=== PATIENT | female | born 1935 | race Caucasian/White ===

== ENCOUNTER 2016-09-09 13:12 | Emergency (ER) | payer OTHER ==
[~2016-09-09] VITALS: Ht 154.9 cm; Wt 59.7 kg
[~2016-09-09 13:12] MED LIST: ACET-1138 PO; ASPEC81 PO; ATV5 PO; DOCU-94 PO; GLCSC750600 PO; MISCCAP PO; MULT-916 PO; ONDA8TAB6 PO; PRLSR20 PO; RXC5 PO
[2016-09-09 13:20] VITALS: TEMP 36.8; Ht 154.9 cm; Wt 59.7 kg
[2016-09-09] MEDS ORDERED: HYDROmorphone INJ 1 MG/ML SYR IV STA (13:51)
[2016-09-09] MEDS ORDERED: ONDANSETRON INJ 2 MG/ML 2 ML VIAL IV STA (13:51)
[2016-09-09] MEDS ORDERED: SOD PHOSPHATE/SOD BIPHOSPHATE ENEMA 132 ML BTL PR STA (13:51)
[2016-09-09] MEDS ORDERED: KETOROLAC TROMETHAMINE 30 MG/ML VIAL IV STA (13:51)
[2016-09-09] MEDS ORDERED: SODIUM CHLORIDE 0.9% 1000ML 1,000 ML IV STA (13:51)
--- NOTE | 2016-09-09 13:52 | EMERGENCY ROOM VISIT NOTE ---
History Report prepared by Estrellita: Jonnathan Lang Under the Supervision of: Dr. Cherelle Bourgeois M.D. First contact with patient: 13:42 Chief Complaint: CONSTIPATION Stated Complaint: UNABLE TO HAVE A BOWEL MOVEMENT-KNEE SURGERY 08/17 Nursing Triage Summary: Pt c/o constipation, states had knee replacement in August, has been taking pain medication and now with constipation. Pt states the same thing occurred when she had back surgery. History of Present Illness The patient is a 81 year old female who presents to the Emergency Room with complaints of persistent constipation that started a few days ago. She had knee surgery on August 17 and has been taking pain medication for that. The patient associates the constipation with abdominal pain and dry heaves. She describes the abdominal pain as a cramping pain. She notes that she had similar symptoms after she had back surgery and was put on pain medication. Source of History: patient Onset: A few days ago Position: other (global - constipation) Timing: other (persistent) Associated Symptoms: + abdominal pain Note: Associated symptoms: Dry heaves. Review of Systems See HPI for pertinent positives & negatives. A total of 10 systems reviewed and were otherwise negative. Past Medical & Surgical Medical Problems: (1) Left knee DJD Family History FH: cancer FH: heart disease Hypertension Social History Smoking Status: Never Smoker Drug Use: none Housing Status: lives with family Occupation Status: employed Current/Historical Medications Scheduled Acetaminophen (Tylenol Extra Strength), 1,000 MG PO Q8 Aspirin (Aspirin EC Low Dose), 81 MG PO BID Docusate Sodium (Colace), 2 CAP PO HS Glucosamine-Chondroitin (Glucosamine/Chondroitin), 1 CAP PO TID Lorazepam (Ativan *), 0.5 MG PO PRN Multiple Vitamins W/ Minerals (Multivitamin Adults 50+), 0.5 PKT PO BID Omeprazole (Prilosec), 20 MG PO QAM Scheduled PRN Ondansetron Hcl (Zofran), 8 MG PO Q8H PRN for Nausea Allergies Coded Allergies: Iodinated Diagnostic Agents (Unverified Allergy, Severe, DIFFICULTY BREATHING, 08/17/16) Penicillins (Verified Allergy, Intermediate, HIVES, 08/17/16) Sulfa Antibiotics (Verified Allergy, Intermediate, "SULFA DRUGS" = HIVES, 08/17/16) Adhesives (Verified Allergy, Unknown, tape = red skin, 08/17/16) Atorvastatin (Verified Allergy, Unknown, SEVERE MUSCLE PAIN, 08/17/16) Ciprofloxacin (Verified Allergy, Unknown, HIVES, 08/17/16) Simvastatin (Verified Allergy, Unknown, SEVERE MUSCLE ACHES, 08/17/16) Morphine (Verified Adverse Reaction, Unknown, SEVERE DELERIUM, 08/17/16) Physical Exam Vital Signs Date Time Temp Pulse Resp B/P Pulse Ox O2 Delivery O2 Flow Rate FiO2 09/09/16 16:37 96 20 147/82 91 Room Air 09/09/16 15:15 97 20 146/87 98 Room Air 09/09/16 13:20 36.8 99 18 155/88 97 Room Air Physical Exam CONSTITUTIONAL: Mild to moderate distress. HEENT: No icterus, moist mucous membranes NECK: No meningismus, trachea is midline. CARDIOVASCULAR: Regular rate, normal perfusion RESPIRATORY: Unlabored breathing. Clear to auscultation. GASTROINTESTINAL: Diffuse lower abdominal tenderness. GENITOURINARY: No flank tenderness MUSCULOSKELETAL: Full range of motion RECTAL: No impaction. NEUROLOGIC: No acute gross focal deficits. PSYCHIATRIC: Normal affect SKIN: Normal for ethnicity. Medical Decision & Procedures ER Provider Diagnostic Interpretation: CT results as stated below per my review and radiologist interpretation. CT SCAN OF THE ABDOMEN AND PELVIS WITHOUT CONTRAST CLINICAL HISTORY: constipation, nausea COMPARISON STUDY: 05/11/2012 TECHNIQUE: CT scan of the abdomen and pelvis was performed from the lung bases to the proximal femurs. Images are reviewed in the axial, sagittal, and coronal planes. IV contrast was not administered for this examination. CT DOSE: 257.12 mGy.cm FINDINGS: Lower chest: There is a hiatal hernia. There is minor basilar atelectasis. There are coronary artery calcifications. Liver: The unenhanced liver is normal in size, contour, and attenuation. There is no intrahepatic biliary ductal dilatation. Gallbladder: There are calcifications in the gallbladder fundus. This could represent either wall calcifications, or an adherent gallstones. Spleen: Normal in size and attenuation. Pancreas: Unremarkable. Adrenal glands: Unremarkable. Kidneys: The unenhanced kidneys are normal in size without hydronephrosis. There is no contour deforming renal mass lesion. No renal calculi are identified. Bowel: There are no transition zones indicate bowel obstruction. There is no evidence of acute diverticulitis. There is no evidence of acute appendicitis. There is mild fecal retention. Peritoneum: There is no intraperitoneal free air or abdominal ascites. Vasculature: The abdominal aorta is normal in course and caliber. Adenopathy: None. Pelvic viscera: The uterus is surgically absent. There are stable linear curvilinear calcifications within the pelvis, of uncertain etiology. Skeletal structures: There are postsurgical changes of an extensive lumbar laminectomy and fusion with posterior spinal rods and multilevel pedicle screws. There is a T11-12 erosive endplate irregularity likely discogenic basis. IMPRESSION: 1. Moderate hiatal hernia 2. No renal, ureteral, or bladder calculi identified 3. No evidence of bowel obstruction. No evidence of free air 4. No evidence of acute appendicitis. No evidence of acute diverticulitis 5. Gallbladder wall calcification versus adherent calcified gallstone Electronically signed by: Liam Allen M.D. 09/09/2016 4:43 PM Dictated Date/Time: 09/09/2016 4:36 PM Laboratory Results 09/09/16 14:18 Red Blood Count 4.01, Mean Corpuscular Volume 92.8, Mean Corpuscular Hemoglobin 30.7, Mean Corpuscular Hemoglobin Concent 33.1, Mean Platelet Volume 9.1, Neutrophils (%) (Auto) 61.1, Lymphocytes (%) (Auto) 28.5, Monocytes (%) (Auto) 9.2, Eosinophils (%) (Auto) 0.6, Basophils (%) (Auto) 0.4, Neutrophils # (Auto) 3.19, Lymphocytes # (Auto) 1.49, Monocytes # (Auto) 0.48, Eosinophils # (Auto) 0.03, Basophils # (Auto) 0.02 09/09/16 14:18 Test 09/09/16 14:18 09/09/16 15:15 White Blood Count 5.22 K/uL (4.8-10.8) Red Blood Count 4.01 M/uL (4.2-5.4) Hemoglobin 12.3 g/dL (12.0-16.0) Hematocrit 37.2 % (37-47) Mean Corpuscular Volume 92.8 fL (80-100) Mean Corpuscular Hemoglobin 30.7 pg (25-34) Mean Corpuscular Hemoglobin Concent 33.1 g/dl (32-36) Platelet Count 528 K/uL (130-400) Mean Platelet Volume 9.1 fL (7.4-10.4) Neutrophils (%) (Auto) 61.1 % Lymphocytes (%) (Auto) 28.5 % Monocytes (%) (Auto) 9.2 % Eosinophils (%) (Auto) 0.6 % Basophils (%) (Auto) 0.4 % Neutrophils # (Auto) 3.19 K/uL (1.4-6.5) Lymphocytes # (Auto) 1.49 K/uL (1.2-3.4) Monocytes # (Auto) 0.48 K/uL (0.11-0.59) Eosinophils # (Auto) 0.03 K/uL (0-0.5) Basophils # (Auto) 0.02 K/uL (0-0.2) RDW Standard Deviation 49.9 fL (36.4-46.3) RDW Coefficient of Variation 14.8 % (11.5-14.5) Immature Granulocyte % (Auto) 0.2 % Immature Granulocyte # (Auto) 0.01 K/uL (0.00-0.02) Anion Gap 8.0 mmol/L (3-11) Est Creatinine Clear Calc Drug Dose 50.4 ml/min Estimated GFR () 87.9 Estimated GFR (Non- 75.8 BUN/Creatinine Ratio 17.4 (10-20) Calcium Level 9.1 mg/dl (8.5-10.1) Total Bilirubin 0.4 mg/dl (0.2-1) Aspartate Amino Transf (AST/SGOT) 21 U/L (15-37) Alanine Aminotransferase (ALT/SGPT) 30 U/L (12-78) Alkaline Phosphatase 95 U/L (45-117) Total Protein 7.4 gm/dl (6.4-8.2) Albumin 3.8 gm/dl (3.4-5.0) Globulin 3.6 gm/dl (2.5-4.0) Albumin/Globulin Ratio 1.1 (0.9-2) Urine Color YELLOW Urine Appearance CLEAR (CLEAR) Urine pH 7.5 (4.5-7.5) Urine Specific [place] 1.009 (1.000-1.030) Urine Protein NEG (NEG) Urine Glucose (UA) NEG (NEG) Urine Ketones NEG (NEG) Urine Occult Blood NEG (NEG) Urine Nitrite NEG (NEG) Urine Bilirubin NEG (NEG) Urine Urobilinogen NEG (NEG) Urine Leukocyte Esterase NEG (NEG) Labs reviewed by ED physician. Medications Administered Medications (Trade) Dose Ordered Sig/Quinton Route Start Time Stop Time Status Last Admin Dose Admin Sodium Chloride (Nss 1000ml) 1,000 ml @ 0 mls/hr Q0M STAT IV 09/09/16 13:51 09/09/16 13:54 DC 09/09/16 14:28 999 MLS/HR Ondansetron HCl (Zofran Inj) 4 mg NOW STAT IV 09/09/16 13:51 09/09/16 13:54 DC 09/09/16 14:27 4 MG Ketorolac Tromethamine (Toradol Inj) 15 mg NOW STAT IV 09/09/16 13:51 09/09/16 13:54 DC 09/09/16 14:28 15 MG Hydromorphone HCl (Dilaudid Inj) 1 mg PRN STAT IV 09/09/16 13:51 09/09/16 13:54 DC 09/09/16 14:30 1 MG Sodium Biphosphate/ Sodium Phosphate (Fleet Enema) 132 ml NOW STAT MT 09/09/16 13:51 09/09/16 13:54 DC 09/09/16 14:31 132 ML Metoclopramide HCl (Reglan Inj) 10 mg Q6H IV 09/09/16 14:00 10/09/16 13:59 09/09/16 14:28 10 MG Lorazepam (Ativan Inj) 1 mg NOW STAT IV 09/09/16 14:37 09/09/16 14:38 DC 09/09/16 14:43 1 MG ED Course 1344: Past medical records reviewed. The patient was evaluated in room B6. A complete history and physical examination was performed. 1351: Ordered Fleet Enema 132 ml MT, Dilaudid Inj 1 mg IV, Toradol Inj 15 mg IV , Zofran Inj 4 mg IV, NSS 1000 ml @ 0 mls/hr Wide Open IV. 1400: Ordered Reglan Inj 10 mg IV. 1437: Ordered Ativan Inj 1 mg IV. 1705: I reevaluated the patient and she is resting comfortably. The patient verbally expressed understanding and agreement of the treatment plan. The patient will be discharged. Medical Decision Differential diagnoses include: obstruction, constipation, infection. 81-year-old presented to the emergency room for worsening constipation status post knee replacement and is now nauseous without vomiting and mild diffuse lower abdominal pain on exam. Rectal exam without impaction. She was hydrated given antiemetics and CT scan was up swelling negative for obstruction or other acute pathology. Fleet enema provided emergency room. She was counseled regarding management of constipation including Fleet enemas, laxatives and given prescription for HalfLytely and Zofran or ballotable tablets when necessary. She. No distress was benign abdomen prior to discharge at 5 PM. Impression Primary Impression: Constipation Scribe Attestation The scribe's documentation has been prepared under my direction and personally reviewed by me in its entirety. I confirm that the note above accurately reflects all work, treatment, procedures, and medical decision making performed by me. Departure Information Dispostion Home / Self-Care Referrals Osei Agudelo M.D. (PCP) Forms HOME CARE DOCUMENTATION FORM, IMPORTANT VISIT INFORMATION Patient Instructions A Signature Page, Constipation, My [facility] Additional Instructions Rx: Half Lypita
[2016-09-09] MEDS ORDERED: METOCLOPRAMIDE HCL INJ 5 MG/ML 2 ML VIAL IV SCH (14:00)
[2016-09-09] MEDS ORDERED: LORAZEPAM 2 MG/ML 1 ML VIAL IV STA (14:37)
[2016-09-09 14:50] LABS: BASO % 0.4 %; BASO ABS # 0.02 K/uL (0-0.2); COMPLETE YES; EOS % 0.6 %; HEMATOCRIT 37.2 % (37-47); IG% 0.2 %; LYMPH % 28.5 %; LYMPH ABS # 1.49 K/uL (1.2-3.4); MEAN CELL VOLUME 92.8 fL (80-100); MEAN CORPUSCULAR HEMOGLOBIN 30.7 pg (25-34); MEAN CORPUSCULAR HGB CONC 33.1 g/dl (32-36); MEAN PLATELET VOLUME 9.1 fL (7.4-10.4); MONO % 9.2 %; NEUT % 61.1 %; PLATELET COUNT 528 K/uL (130-400); RED BLOOD COUNT 4.01 M/uL (4.2-5.4); WHITE BLOOD COUNT 5.22 K/uL (4.8-10.8)
[2016-09-09 15:09] LABS: BUN/CREATININE RATIO 17.4 (10-20); CALCIUM 9.1 mg/dl (8.5-10.1); CREATININE 0.75 mg/dl (0.60-1.20)
[2016-09-09 15:12] LABS: ALB/GLOB RATIO 1.1 (0.9-2)
[2016-09-09 16:22] LABS: URINE APPEARANCE CLEAR (CLEAR); URINE BILIRUBIN NEG (NEG); URINE COLOR YELLOW; URINE NITRITE NEG (NEG); URINE PH 7.5 (4.5-7.5); URINE SPECIFIC GRAVITY 1.009 (1.000-1.030); UROBILINOGEN NEG (NEG); ZZUR CULT IF INDIC CLEAN CATCH NO
[2016-09-09 16:26] LABS: MANUAL MICROSCOPIC REQUIRED? NO; REVIEW REQ? NO
--- NOTE | 2016-09-09 16:45 | DIAGNOSTIC IMAGING REPORT ---
CT SCAN OF THE ABDOMEN AND PELVIS WITHOUT CONTRAST CLINICAL HISTORY: constipation, nausea COMPARISON STUDY: 05/11/2012 TECHNIQUE: CT scan of the abdomen and pelvis was performed from the lung bases to the proximal femurs. Images are reviewed in the axial, sagittal, and coronal planes. IV contrast was not administered for this examination. CT DOSE: 257.12 mGy.cm FINDINGS: Lower chest: There is a hiatal hernia. There is minor basilar atelectasis. There are coronary artery calcifications. Liver: The unenhanced liver is normal in size, contour, and attenuation. There is no intrahepatic biliary ductal dilatation. Gallbladder: There are calcifications in the gallbladder fundus. This could represent either wall calcifications, or an adherent gallstones. Spleen: Normal in size and attenuation. Pancreas: Unremarkable. Adrenal glands: Unremarkable. Kidneys: The unenhanced kidneys are normal in size without hydronephrosis. There is no contour deforming renal mass lesion. No renal calculi are identified. Bowel: There are no transition zones indicate bowel obstruction. There is no evidence of acute diverticulitis. There is no evidence of acute appendicitis. There is mild fecal retention. Peritoneum: There is no intraperitoneal free air or abdominal ascites. Vasculature: The abdominal aorta is normal in course and caliber. Adenopathy: None. Pelvic viscera: The uterus is surgically absent. There are stable linear curvilinear calcifications within the pelvis, of uncertain etiology. Skeletal structures: There are postsurgical changes of an extensive lumbar laminectomy and fusion with posterior spinal rods and multilevel pedicle screws. There is a T11-12 erosive endplate irregularity likely discogenic basis. IMPRESSION: 1. Moderate hiatal hernia 2. No renal, ureteral, or bladder calculi identified 3. No evidence of bowel obstruction. No evidence of free air 4. No evidence of acute appendicitis. No evidence of acute diverticulitis 5. Gallbladder wall calcification versus adherent calcified gallstone Electronically signed by: Liam Allen M.D. 09/09/2016 4:43 PM Dictated Date/Time: 09/09/2016 4:36 PM
[2016-09-09 17:36] VITALS: BP 133/76; PULSE 81; O2SAT 96
[2017-05-04] MEDS ORDERED: FIBER TAB PO (14:06)
[2017-05-04] MEDS ORDERED: ACET-1256 PO (14:06)
[2017-05-04] MEDS ORDERED: MISCCAP PO (14:07)
== END 2016-09-09 17:38 | disposition home or self-care (01) ==
LOC: C.EDB 13:14
DX: K59.00 Constipation, unspecified (principal); R10.9 Unspecified abdominal pain; Z96.652 Presence of left artificial knee joint; Z79.899 Other long term (current) drug therapy

== ENCOUNTER → 2016-10-24 | Outpatient (CLI) | payer OTHER ==
[~2016-10-24] MED LIST changes: +ACET-1256 PO; +FIBER TAB PO; -RXC5 PO
--- NOTE | 2016-10-24 15:13 | MAMMOGRAPHY REPORT ---
BILATERAL DIGITAL SCREENING MAMMOGRAM WITH CAD: 10/24/2016 CLINICAL HISTORY: Routine screening examination. TECHNIQUE: Bilateral CC, MLO and XCCL views were obtained. Current study was also evaluated with a Computer Aided Detection (CAD) system. COMPARISON: Comparison is made to exams dated: 10/14/2015 mammogram, 10/07/2013 mammogram, 10/02/2012 m ammogram - [facility], 09/07/2007, 10/31/2008, and 11/11/2009 mammogram - [facility]. BREAST COMPOSITION: There are scattered areas of fibroglandular density in both breasts. FINDINGS: There are moderate vascular calcifications bilaterally. No suspicious mass, architectura l distortion or cluster of suspicious microcalcifications is seen. IMPRESSION: ACR BI-RADS CATEGORY 1: NEGATIVE There is no mammographic evidence of malignancy. A 1 year screening mammogram is recommended. The p atient will receive written notification of the results. Approximately 10% of breast cancers are not detected with mammography. A negative mammographic repor t should not delay biopsy if a clinically suggestive mass is present. Tara Shaver M.D. ay/:10/24/2016 09:12:19 District Gauger: Kayli GOMEZ(Earl)(Francisca)([place]), [facility] letter sent: Normal 1/2 BI-RADS Code: ACR BI-RADS Category 1: Negative
== END | disposition home or self-care (01) ==
LOC: C.MAMM 08:51
PROVIDERS: ATTEND Internal Medicine
DX: Z12.31 Encounter for screening mammogram for malignant neoplasm of breast (principal)

== ENCOUNTER 2017-06-21 08:21 | Inpatient (IN) | payer OTHER ==
[2017-05-04 14:13] VITALS: BMI 25.0
[2017-05-26 11:05] LABS: BASO % 0.2 %; BASO ABS # 0.01 K/uL (0-0.2); COMPLETE YES; EOS % 0.2 %; HEMATOCRIT 44.1 % (37-47); IG% 0.4 %; LYMPH % 24.8 %; LYMPH ABS # 1.24 K/uL (1.2-3.4); MEAN CELL VOLUME 94.2 fL (80-100); MEAN CORPUSCULAR HEMOGLOBIN 31.8 pg (25-34); MEAN CORPUSCULAR HGB CONC 33.8 g/dl (32-36); MEAN PLATELET VOLUME 9.5 fL (7.4-10.4); MONO % 9.4 %; PLATELET COUNT 253 K/uL (130-400); RED BLOOD COUNT 4.68 M/uL (4.2-5.4); WHITE BLOOD COUNT 4.99 K/uL (4.8-10.8)
--- NOTE | 2017-05-26 11:08 | DIAGNOSTIC IMAGING REPORT ---
CHEST 2 VIEWS ROUTINE CLINICAL HISTORY: Preoperative chest COMPARISON STUDY: 10/23/2015 FINDINGS: The cardiac and mediastinal contours remain stable. There is a retrocardiac opacity containing air-fluid level consistent with a hiatal hernia. There are postsurgical changes of thoracic and lumbar spinal rodding. There are postsurgical changes of discectomies and interbody fusions within the lumbar spine. There are several thoracic vertebral body compression deformities. There is no focal pulmonary consolidation. There is no failure. There are no pleural effusions. Postsurgical changes are also evident with the right shoulder.[ IMPRESSION: No active disease in the chest. Electronically signed by: Liam Allen M.D. 05/26/2017 11:07 AM Dictated Date/Time: 05/26/2017 11:06 AM
[2017-05-26 11:13] LABS: INR 0.9 (0.9-1.1); PROTHROMBIN TIME (PATIENT) 9.7 SECONDS (9.0-12.0)
[2017-05-26 11:32] LABS: BUN/CREATININE RATIO 21.8 (10-20); CALCIUM 9.3 mg/dl (8.5-10.1); CREATININE 0.81 mg/dl (0.60-1.20); POTASSIUM 4.1 mmol/L (3.5-5.1)
[2017-05-26 11:57] LABS: ESTIMATED AVERAGE GLUCOSE 114 mg/dl; HA1C FLAG Normal (Normal)
[2017-05-26 13:24] LABS: URINE APPEARANCE CLEAR (CLEAR); URINE BILIRUBIN NEG (NEG); URINE COLOR YELLOW; URINE EPITHELIAL CELL AUTO >30 /lpf (0-5); URINE NITRITE NEG (NEG); URINE PH 6.5 (4.5-7.5); UROBILINOGEN NEG (NEG)
[2017-05-26 13:35] LABS: MANUAL MICROSCOPIC REQUIRED? NO; REVIEW REQ? NO
--- NOTE | 2017-06-20 16:35 | HISTORY & PHYSICAL EXAMINATION ---
DATE OF ADMISSION: 06/21/2017 CHIEF COMPLAINT: Chronic right shoulder pain. HISTORY OF PRESENT ILLNESS: This is an 82-year-old female patient of Dr. Sykes'mayco complaining of chronic right shoulder pain, longstanding, now progressively getting worse. The patient failed conservative treatment and elected to proceed with a right reverse total shoulder arthroplasty. PAST MEDICAL HISTORY: Anxiety, rheumatoid arthritis, osteoarthritis, spine problems, neck problems, sciatica. SOCIAL HISTORY: Nonsmoker, nondrinker. PAST SURGICAL HISTORY: Knee surgery, shoulder surgery, back surgery. MEDICATIONS: Tylenol as needed and lorazepam as needed. FAMILY HISTORY: Noncontributory. REVIEW OF SYSTEMS: The patient complains of chronic right shoulder pain and weakness. Otherwise, denies any shortness of breath, chest pain, nausea, vomiting or any other joint complaints. PHYSICAL EXAMINATION: GENERAL: Well-developed, well-nourished 82-year-old female in no acute distress. She is alert and oriented x3 and pleasant. HEAD, EYES, EARS, NOSE, AND THROAT: Normocephalic, atraumatic. Extraocular motions are intact. Pupils are equal and reactive to light. HEART: Regular rate and rhythm, no murmurs appreciated. LUNGS: Clear. ABDOMEN: Soft, nontender, bowel sounds are present. EXTREMITIES: Right shoulder reveals 3/5 strength globally. Actively she has range of motion of 95 degrees, passively full. A full range of motion passively is painful with crepitation. Neurologically and neurovascularly she is intact within her right upper extremity. 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 She also has a history of anxiety, rheumatoid arthritis, osteoarthritis, spine problems, neck problems, sciatica, back problems and acid reflux. PLAN: The patient was advised of her diagnosis. Indications, risks, benefits, postop course have all been reviewed. The patient wishes to proceed with a right reversed total shoulder arthroplasty. Necessary consent forms, preoperative testing and clearances will be obtained. SUSAN
[~2017-06-21] VITALS: Ht 152.4 cm; Wt 59.1 kg
[2017-06-21] VITALS (8 sets, daily range): BP systolic 114–181; BP diastolic 62–97; PULSE 77–97; TEMP 34.8–36.6; O2SAT 93–97; Ht 152.4 cm; Wt 59.1 kg
[~2017-06-21 08:21] MED LIST changes: -ACET-1138 PO; +ACETAMINOPHEN 500 MG TAB PO SCH; -ASPEC81 PO; +CeleBREX 200 MG CAP PO SCH; +DEXAMETHASONE 4 MG TAB PO SCH; -DOCU-94 PO; +FAMOTIDINE 20 MG TAB PO SCH; +GABAPENTIN 300 MG CAP PO SCH; -GLCSC750600 PO; +LACTATED RINGER'S 1000ML 1,000 ML IV SCH; +LACTATED RINGER'S 1000ML IV SCH; +METOCLOPRAMIDE HCL 10 MG TAB PO SCH; -ONDA8TAB6 PO; -PRLSR20 PO; +VANCOMYCIN INJ 900 MG in SODIUM CHLORIDE 0.9% 250ML 250 ML IV SCH
[2017-06-21] MEDS ORDERED: DEXAMETHASONE SOD INJ 4 MG/ML VIAL ONE (08:29)
[2017-06-21] MEDS ORDERED: EpINEphrine INJ 1MG/ML AMP 1 MG/ML AMP ONE (08:29)
[2017-06-21] MEDS ORDERED: BUPIVACAINE 0.25% 30 ML VIAL ONE (08:29)
[2017-06-21] MEDS ORDERED: FENTANYL CITRATE INJ 50 MCG/1 ML 2 ML VIAL ONE (09:39)
[2017-06-21] MEDS ORDERED: MIDAZOLAM HCL 1 MG/ML 2ML VIAL ONE (09:39)
[2017-06-21] MEDS ORDERED: BACITRACIN 50000 UNIT VIAL ONE (09:57)
[2017-06-21] MEDS ORDERED: EpINEphrine HCL INJ 1 MG/ML 5ML SYRINGE ONE (09:57)
[2017-06-21] MEDS ORDERED: EpHEDrine SULFATE 50MG/5ML SYR ONE ×2 (09:58→11:26)
--- NOTE | 2017-06-21 10:04 | History & Physical Bridge Note ---
H&P Re-Evaluation Bridge Note: I have examined the patient, reviewed the History & Physical and in the interval since the performance of the History & Physical I have noted the following changes of clinical significance: No changes noted
[2017-06-21] MEDS ORDERED: PROPOFOL IV EMULSION 10 MG/ML 20 ML VIAL IV ONE (11:26)
[2017-06-21] MEDS ORDERED: LIDOCAINE HCL 2% 2 ML VIAL (20MG/ML) ONE (11:26)
[2017-06-21] MEDS ORDERED: GLYCOPYRROLATE INJ 0.2 MG/ML VIAL ONE (11:26)
[2017-06-21] MEDS ORDERED: ROCURONIUM BROMIDE 10 MG/ML 5 ML VIAL IV ONE (11:26)
[2017-06-21] MEDS ORDERED: NEOSTIGMINE METHYLSULFATE 5 MG/5 ML SYR ONE (11:26)
[2017-06-21] MEDS ORDERED: ONDANSETRON INJ 2 MG/ML 2 ML VIAL IV PRN (13:15)
[2017-06-21] MEDS ORDERED: PROMETHAZINE HCL INJ 6.25 MG in SODIUM CHLORIDE 0.9% 50ML 50 ML IV PRN (13:15)
[2017-06-21] MEDS ORDERED: ATROPINE SULFATE 0.1 MG/ML 5ML SYR IV PRN (13:15)
[2017-06-21] MEDS ORDERED: FENTANYL CITRATE INJ 50 MCG/1 ML 2 ML VIAL IV PRN (13:15)
[2017-06-21] MEDS ORDERED: EpHEDrine SULFATE INJ 50 MG/ML AMP IV PRN (13:15)
--- NOTE | 2017-06-21 13:29 | [facility] Post Operative Brief Note ---
Immediate Operative Summary Operative Date Jun 21, 2017. Pre-Operative Diagnosis Right shoulder end stage osteoarthritis,chronic rotator cuff tear ,s/p prior rotator cuff repair retained hardware(suture anchors),biceps rupture Post-Operative Diagnosis same Procedure(s) Performed Right Reverse Total Shoulder Arthroplasty; Rotator Cuff Repair; Biceps Tenodesis Surgeon Dr. Walt Sykes Air Technician Surgeon(s) Eliceo Samson PA-C Estimated Blood Loss 50 ml Findings as above grade 4 djd posterior superior bone loss glenoid Specimens a. humeral head Drains 2 hemovac Anesthesia regional and general Complication(s) None Disposition Recovery Room / PACU
[2017-06-21] MEDS ORDERED: METOCLOPRAMIDE HCL INJ 5 MG/ML 2 ML VIAL IV PRN (13:30)
[2017-06-21] MEDS ORDERED: BISACODYL 10 MG SUPP PR PRN (13:30)
[2017-06-21] MEDS ORDERED: SOD PHOSPHATE/SOD BIPHOSPHATE ENEMA 132 ML BTL PR PRN (13:30)
[2017-06-21] MEDS ORDERED: HYDROmorphone INJ 0.5 MG/0.5 ML SYR IV PRN (13:30)
[2017-06-21] MEDS ORDERED: LORAZEPAM 0.5 MG TAB PO PRN (13:30)
[2017-06-21] MEDS ORDERED: ZOLPIDEM TARTRATE 5 MG TAB PO PRN (13:30)
[2017-06-21] MEDS ORDERED: MAGNESIUM HYDROXIDE SUSP 30 ML UDC PO PRN (13:30)
[2017-06-21] MEDS ORDERED: NATURAL PRODUCTS PO SCH (13:30)
--- NOTE | 2017-06-21 14:10 | DIAGNOSTIC IMAGING REPORT ---
R SHOULDER MIN 2 VIEWS ROUTINE HISTORY: 82 years-old Female Post shoulder surgery status post right shoulder arthroplasty. Degenerative joint disease COMPARISON: None available TECHNIQUE: 2 views of the right shoulder FINDINGS: Status post reverse right total shoulder arthroplasty with satisfactory alignment. No post procedural comp location identified. There are overlying skin adelso with surgical drain and expected soft tissue swelling and deep tissue air. Apparent fragment osteophyte or noted adjacent to the acromium. There is apparent cement material seen deep to the glenoid. Fusion hardware of the spine is noted. There is atherosclerosis of the aorta. IMPRESSION: Status post right shoulder reverse total joint arthroplasty without complication identified. Please see operative report for further details. The above report was generated using voice recognition software. It may contain grammatical, syntax or spelling errors. Electronically signed by: Hermelindo Kingsley M.D. 06/21/2017 2:09 PM Dictated Date/Time: 06/21/2017 2:07 PM
--- NOTE | 2017-06-21 14:15 | Anesthesiology Progress Note ---
Anesthesia Post Op Note Date & Time Jun 21, 2017 at 14:15 Vital Signs Pain Intensity: 0 Vital Signs Past 12 Hours Date Time Temp Pulse Resp B/P (MAP) Pulse Ox O2 Delivery O2 Flow Rate FiO2 06/21/17 14:05 36.6 85 19 132/68 95 Nasal Cannula 4 06/21/17 13:55 88 17 132/66 97 Nasal Cannula 4 06/21/17 13:45 84 17 132/86 97 Nasal Cannula 4 06/21/17 13:35 88 19 135/71 96 Nasal Cannula 4 06/21/17 13:28 36.5 94 16 132/64 97 Nasal Cannula 4 06/21/17 08:52 36.6 88 20 181/97 96 Room Air Notes Mental Status: alert / awake / arousable, participated in evaluation Pt Amnestic to Procedure: Yes Nausea / Vomiting: adequately controlled Pain: adequately controlled Airway Patency, RR, SpO2: stable & adequate BP & HR: stable & adequate Hydration State: stable & adequate Anesthetic Complications: no major complications apparent Block working well in pacu
--- NOTE | 2017-06-21 14:40 | OPERATIVE REPORT ---
DATE OF OPERATION: 06/21/2017 INDICATION FOR PROCEDURE: The patient is an 82-year-old female who presents with chronic right shoulder pain. She has history of rotator cuff repair in the past, at some point this rotator cuff repair failed over time. She has rotator cuff arthropathy. She is now [id number] in the glenohumeral joint. PREOPERATIVE DIAGNOSIS: End-stage glenohumeral osteoarthritis, rotator cuff arthropathy, failed rotator cuff repair, retained hardware and biceps rupture. POSTOPERATIVE DIAGNOSIS: Same grade 4 DJD, bone loss posterior superior glenoid. PROCEDURE: Right shoulder reverse total shoulder arthroplasty, rotator cuff repair, biceps tenodesis, removal of hardware, status post prior rotator cuff repair. SURGEON: Dr. Sykes. COMPRESSOR MECHANIC BUS: Eliceo Samson PA-C. ANESTHESIA: Regional block and general. OPERATIVE PROCEDURE: The patient was taken to the operating room, anesthetized regional block and general anesthetic. She was positioned on an operating room table in a beach chair position in approximately a 40 degree beach chair position. A towel was placed in the medial border of her scapula. Her head was placed on a foam headrest. She had protective eyewear placed. She had SCDs placed. Right shoulder exam demonstrates she had good passive range of motion in forward elevation to at least 70 degrees abduction to 120 degrees, and external rotation to 70 degrees. She had joint effusion and txbg-sw-[id number] crepitation. She had an old lateral longitudinal scar over the deltoid where she had mini open rotator cuff repair in the past. Her right shoulder was sterilely prepped and draped with ChloraPrep. An anterior deltopectoral approach was performed. Skin was incised sharply. Subcutaneous flaps were elevated. The cephalic vein was dissected out and retracted laterally with the deltoid. The pectoralis was retracted medially. The upper centimeter of the pectoralis was released for inferior exposure. We did identify the biceps tendon was still present. It looked a bit atrophic and retracted. We were able to pull the biceps tendon up more proximal to get more tension on the biceps tendon and we tied this down to the pectoralis tendon with a tmqzff-[id number] #2 Fiberwire sutures and resected the residual proximal biceps proximally. There was a thickened bursa over the subscapularis extending over the rotator cuff from the subacromial space. This was resected. The strap muscles and conjoined tendon were retracted medially. Deltoid was retracted laterally. The subscapularis and some of the rotator interval tissue of the rotator cuff was intact. The infraspinatus was torn and retracted, tendinopathic but it looked like she had some repairable infraspinatus tendon tissue. The teres minor was intact. The humeral head was grade 4 DJD in the bone. The circumflex vessels were identified, tied off with silk ties, divided laterally. The axillary nerve was identified visually and by a tug test. This was protected throughout the case. The subscapularis fibers were split at the level of the circumflex vessels and reflected off the inferior capsule, protecting the axillary nerve with a blunt Hohmann retractor. The rotator interval tissue was opened up and extended lateral to the bicipital groove and then the subscapularis and capsule were taken down off the lesser tuberosity subperiosteally down onto the neck of the humerus and the humerus was gradually externally rotated as we released the capsule on the neck of the humerus to expose the inferior humeral osteophytes extended from anterior to posterior. Osteophytes were removed with an artist chisel and a rongeur. We did assure that the capsule was released off the inferior neck of the humerus with the Quiroz elevator. At this time, then the humerus was retracted posterior glenoid with a Fukuda retractor. We did place traction suture into the subscapularis tendon with #1 Vicryl. The capsule was then released under direct visualization down to the glenoid, released off the anterior glenoid and the rotator interval tissue was released down to meet that for a 360 degree release of the subscapularis. The Bankart retractor placed anteriorly. The remnants of the glenoid labrum were resected. We did anterior inferior, posterior inferior capsular release, electrocautery on bone and Quiroz elevator. Glenoid had eburnated bone, some posterior superior bone loss with a biconcave type glenoid. It was more superior posterior bone loss and inferiorly the glenoid was normal posteriorly. At this time the humeral head preparation was performed. The humerus was exposed with extension and external rotation. The cutting guide for the Ascend Flex reversed total shoulder replacement system was used. The cutting guide was adjusted to appropriate position in 20 degrees of retroversion. Then we made the humeral head cut. At this time, we were able to identify the infraspinatus tendon which was a fairly large piece infraspinatus that I could bring over and tied down to the teres minor. We did bring this tendon tissue over and some of it was delaminated so we also passed sutures to the inner delaminated portion and passed it through the outer infraspinatus and into the teres minor too. We sutured these to each other with shlmlz-us-iokmf #2 FiberWire and the #2 FiberWire through the delaminated portion. This gave her more external rotators to hopefully increase strength with external rotation. The humeral preparation was continued starting with a starter awl followed by broaches. She was sized for a 4 and we broached up to a 4 and then placed on the cup protector. Then we retracted the humeral head posterior to the glenoid. We went ahead with a 25 mm baseplate,this was positioned inferior on the glenoid so that we would not get any notching inferiorly. The central drill hole was made with the guide for the baseplate followed by the reamer and we did do 10 degree inferior tilt so we did get some inferior reaming more than superior to get the appropriate angle for the implant. After irrigation, the 25 base plate was placed in position after the central hole was widened for the post. The baseplate was then transfixed with anterior and posterior compression screws of 18 and 32 mm and superior and inferior locking screws of 23 and 29 mm. There was excellent fixation with the screws. We used the fan reamer and then placed on the standard glenosphere 36/25 diameter. After this was impacted in position the central screw was tightened. We reassessed stability of the glenosphere and then irrigated out the joint. Then we went ahead and placed the +0 mm high offset humeral tray in position and rotated the offset to get appropriate coverage and then we went ahead and tightened that down and then used a 36 +6 mm insert and then did a trial reduction. There was no shuck and complete stability through full range of motion. She had 180 degrees of forward elevation, 150 degrees of abduction, external rotation, internal rotation both without any instability. The trial was removed then and the drill holes were made through the hard bone in the bicipital groove and 3 transosseous FiberWire sutures were placed around lesser tuberosity. The canal was irrigated with antibiotic solution and bacitracin. The final component was assembled. Final component was the Ascend Flex Tornier 4B long humeral stem assembled to the +0 3.5 mm high offset tray assembled to the 36 mm +6 polyethylene insert. The final component was impacted into the humerus with a tight pressfit. It was reduced to the glenosphere and we verified stability. The subscapularis was repaired with #5 FiberWire sutures previously placed using Tim-Bennett suture technique. Lateral row soft tissue repair performed with lbagff-pp-mmoub #2 FiberWire. The arm was taken through range of motion. She had full forward elevation and abduction at least to 120 degrees and external rotation to 70 degrees without any tension on the repair. The wound was irrigated. Then the pectoral repair was performed with owhhwz-ec-jeblj #2 FiberWire sutures reinforcing the biceps tenodesis. Then the 2 Hemovac drains were placed out laterally. Then the deltopectoral interval was closed with aptyxc-vf-fmfeu #1 Vicryl sutures. During the retraction, we did get a puncture hole in the cephalic vein and we tried controlling bleeding with electrocautery, but we were unable to control the bleeding without tying off the central region of the vein. The subcutaneous tissues were closed with 2-0 Vicryl, skin was closed with adelso, sterile dressings were applied. The patient tolerated the procedure well, had about 50 mL of blood loss. Eliceo Samson PA-C was my first line supervisor and functioned as first line supervisor for the entire procedure. He assisted in patient positioning, prepping, draping, arm positioning, instrument, soft tissue retraction, and performed the subcutaneous and skin closure and will participate in the postoperative care of the patient. I attest to the content of the Intraoperative Record and any orders documented therein. Any exceptions are noted below. SUSAN
[2017-06-21] MEDS: D5W AND 1/2NSS + 20MEQ KCL 1,000 ML IV SCH (15:51)
--- NOTE | 2017-06-21 17:03 | OPERATIVE REPORT ---
DATE OF OPERATION: 06/21/2017 ADDENDUM: After we made the humeral head cut, we did have some difficulty making the cut as we entered into the old anchors. We did cut around the old anchors and then removed several plastic suture anchors from within the greater tuberosity and metaphyseal area of the humeral head. I attest to the content of the Intraoperative Record and any orders documented therein. Any exception s are noted below.
[2017-06-21] MEDS: OXYCODONE HCL 10 MG TABCR (OXYCONTIN) PO SCH (21:14)
[2017-06-21] MEDS: SENNA 8.6 MG TAB PO SCH (21:14)
[2017-06-21] MEDS: DOCUSATE SODIUM 100 MG CAP PO SCH (21:14)
[2017-06-21] MEDS: ACETAMINOPHEN 500 MG TAB PO SCH (21:15)
[2017-06-21] MEDS ORDERED: VANCOMYCIN INJ 900 MG in SODIUM CHLORIDE 0.9% 250ML 250 ML IV SCH (22:00)
[2017-06-22] MEDS: D5W AND 1/2NSS + 20MEQ KCL 1,000 ML IV SCH (01:38)
[2017-06-22 03:45] VITALS: BP 135/72; PULSE 79; TEMP 36.5; O2SAT 95
[2017-06-22] MEDS: OXYCODONE HCL IR 5 MG TAB (IMMEDIATE RELEASE) PO PRN ×2 (04:38→13:22)
[2017-06-22] MEDS: ACETAMINOPHEN 500 MG TAB PO SCH ×3 (05:38→21:00)
[2017-06-22 06:44] LABS: HEMATOCRIT 31.6 % (37-47); MEAN CELL VOLUME 92.9 fL (80-100); MEAN CORPUSCULAR HEMOGLOBIN 31.2 pg (25-34); MEAN CORPUSCULAR HGB CONC 33.5 g/dl (32-36); MEAN PLATELET VOLUME 9.2 fL (7.4-10.4); PLATELET COUNT 199 K/uL (130-400); WHITE BLOOD COUNT 7.62 K/uL (4.8-10.8)
[2017-06-22 07:19] LABS: CALCIUM 8.1 mg/dl (8.5-10.1); CREATININE 0.63 mg/dl (0.60-1.20); POTASSIUM 4.5 mmol/L (3.5-5.1)
[2017-06-22 07:30] VITALS: BP 130/71; PULSE 67; TEMP 36.5; O2SAT 97
[2017-06-22] MEDS: DOCUSATE SODIUM 100 MG CAP PO SCH ×2 (08:27→20:59)
[2017-06-22] MEDS: MULTIVITAMIN TAB PO SCH (08:28)
[2017-06-22] MEDS: PANTOprazole SOD 40 MG TAB PO SCH (08:28)
[2017-06-22] MEDS: OXYCODONE HCL 10 MG TABCR (OXYCONTIN) PO SCH ×2 (08:28→20:59)
--- NOTE | 2017-06-22 08:55 | Orthopedic Progress Note ---
Orthopedic Progress Note Date of Service Jun 22, 2017. Subjective Post OP Day: 1 Reports: feeling well, Denies: chest pain, SOB, nausea / vomiting, light headedness, calf pain Objective calves soft nontender, N/V intact, capillary refill less than 2 sec., dressing C /D/I, A&O x3, hemovac drainage (165/85cc per shift) Date Time Temp Pulse Resp B/P (MAP) Pulse Ox O2 Delivery O2 Flow Rate FiO2 06/22/17 07:30 36.5 67 15 130/71 (90) 97 Room Air 06/22/17 03:45 36.5 79 16 135/72 (93) 95 Room Air 06/21/17 23:27 36.6 77 16 114/67 (83) 95 Room Air 06/21/17 23:22 Room Air 06/21/17 18:15 36.4 97 18 114/66 (82) 94 Room Air 06/21/17 17:16 36.4 92 18 119/62 (81) 95 Room Air 06/21/17 16:14 36.4 06/21/17 16:13 34.8 94 18 117/76 (90) 97 Nasal Cannula 2.0 06/21/17 15:45 35.8 93 16 143/77 (99) 96 Nasal Cannula 2.0 06/21/17 15:15 93 Nasal Cannula 4.0 06/21/17 15:15 36.4 85 16 115/70 (85) 93 Nasal Cannula 4.0 85 06/21/17 15:15 93 Nasal Cannula 4.0 06/21/17 14:50 36.5 74 18 118/64 96 Nasal Cannula 4 06/21/17 14:35 72 20 116/59 96 Nasal Cannula 4 06/21/17 14:25 90 16 131/57 96 Nasal Cannula 4 06/21/17 14:15 85 17 117/68 95 Nasal Cannula 4 06/21/17 14:05 36.6 85 19 132/68 95 Nasal Cannula 4 06/21/17 13:55 88 17 132/66 97 Nasal Cannula 4 06/21/17 13:45 84 17 132/86 97 Nasal Cannula 4 06/21/17 13:35 88 19 135/71 96 Nasal Cannula 4 06/21/17 13:28 36.5 94 16 132/64 97 Nasal Cannula 4 Laboratory Results 24 Hours: Test 10/19/17 06:14 Hematocrit 31.6 % Hemoglobin 10.6 g/dL Assessment & Plan Assessment: POD#1 sp right Reverse TSA with biceps tenodesis Plan: PT/OT DVT proph- Pain management- Laurita, Oxycontin DC planning- DC to home tomorrow.
--- NOTE | 2017-06-22 10:18 | Medical Consult ---
Consultation Date of Consultation: Jun 22, 2017. Attending Physician: Walt Sykes M.D. Reason for Consultation: Post-op Medical Management History of Present Illness Pt is a janett 82 yo female with a h/o severe polyarthritis, most likely OA, dyslipidemia, anxiety disorder, sciatica, and osteoporosis, here POD#1 s/p Right shoulder reverse total shoulder arthroplasty, rotator cuff repair, biceps tenodesis, removal of hardware. She is doing great post-operatively. Denies CP/SOB, no N/V, no BM yet, is braxton reg diet, is ambulating without difficulties. Past Medical/Surgical History PMH: Anxiety disorder Osteoarthritis/Polyarthritis with numerous Orthopedic Surgeries H/o TMJ disorder Sciatica GERD Dyslipidemia PSH: Bilateral TKAs Right shoulder surgery x 3 prior to this TSA Lumbar decompression and fusion x 3 (2000,2011,2014) Hysterectomy for menorrhagia (no cancer) Multiple hand surgeries Tonsillectomy Family History FH: cancer FH: heart disease Hypertension Mom-lived to age 95, after CVA Dad- of [place] at age 55 Brother of throat CA s/p chemical exposures, smoker Sister of unknown CA, perhaps ovarian 2 other living siblings healthy Social History Smoking Status: Never Smoker Smokeless Tobacco Use: No Alcohol Use: none Drug Use: none Marital Status: Housing Status: lives with family (youngest son lives with her) 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) Allergies Coded Allergies: Iodinated Diagnostic Agents (Unverified Allergy, Severe, DIFFICULTY BREATHING, 06/21/17) Penicillins (Verified Allergy, Intermediate, HIVES, 06/21/17) Sulfa Antibiotics (Verified Allergy, Intermediate, "SULFA DRUGS" = HIVES, 06/21/17) Adhesives (Verified Allergy, Unknown, tape = red skin, 06/21/17) Atorvastatin (Verified Allergy, Unknown, SEVERE MUSCLE PAIN, 06/21/17) Ciprofloxacin (Verified Allergy, Unknown, HIVES, 06/21/17) Simvastatin (Verified Allergy, Unknown, SEVERE MUSCLE ACHES, 06/21/17) Tramadol (Unverified Allergy, Unknown, NAUSEA AND VOMITING, 06/21/17) Morphine (Verified Adverse Reaction, Unknown, SEVERE DELERIUM, 06/21/17) Home Medications Reported Home Medications Medications Dose Route/Sig Max Daily Dose Days Date Category Dose Instructions Cholesterol Relief (Misc Natural Products) 1 Cap Cap 1 Tab PO AM/NOON 05/04/17 Reported [Fiber Tab] 2-3 Tab PO BID 05/04/17 Reported Tylenol (Acetaminophen) 500 Mg Tab 500 Mg PO BID 05/04/17 Reported Multivitamin Adults 50+ (Multiple Vitamins W/ Minerals) 1 Tab Tab 0.5 Pkt PO BID 07/12/16 Reported PATIENT TAKES A VITAMIN PKT WHICH CONTAINS 7 PILLS INCLUDING FISH OIL. PT SPILT PKT IN HALF. 1/2 PKT QAM, 1/2 PKT QPM Ativan * (Lorazepam) 0.5 Mg Tab 0.5 Mg PO PRN 01/01/10 Reported Current Inpatient Medications Current Inpatient Medications Medications (Trade) Dose Ordered Sig/Quinton Route Start Time Stop Time Status Last Admin Dose Admin Lorazepam (Ativan Tab) 0.5 mg DAILY PRN PO 06/21/17 13:30 07/21/17 13:29 06/22/17 05:42 0.5 MG Diphenhydramine HCl (Benadryl Cap) 25 mg Q8 PRN PO 06/21/17 13:30 07/21/17 13:29 Zolpidem Tartrate (Ambien Tab) 5 mg HSZ PRN PO 06/21/17 13:30 07/21/17 13:29 Metoclopramide HCl (Reglan Inj) 10 mg Q6H PRN IV 06/21/17 13:30 07/21/17 13:29 Ondansetron HCl (Zofran Inj) 4 mg Q6H PRN IV 06/21/17 13:30 07/21/17 13:29 Pantoprazole Sodium (Protonix Tab) 40 mg QAM PO 06/22/17 09:00 07/22/17 08:59 06/22/17 08:28 40 MG Potassium Chloride/Dextrose/ Sod Cl 1,000 ml @ 100 mls/hr Q10H IV 06/21/17 15:45 06/22/17 14:00 06/22/17 01:38 100 MLS/HR Oxycodone HCl (Roxicodone Immediate Rel Tab) `1-2 TABS FOR PAIN `1 TAB... Q4H PRN PO 06/21/17 13:30 07/05/17 13:29 06/22/17 04:38 5 MG Oxycodone HCl (Oxycontin Tab) 10 mg Q12 PO 06/21/17 21:00 07/05/17 20:59 06/22/17 08:28 10 MG Acetaminophen (Tylenol Tab) 1,000 mg Q8 PO 06/21/17 22:00 07/21/17 21:59 06/22/17 05:38 1,000 MG Magnesium Hydroxide (Milk Of Magnesia Susp) 30 ml Q6H PRN PO 06/21/17 13:30 07/21/17 13:29 Bisacodyl (Dulcolax Supp) 10 mg DAILY PRN MS 06/21/17 13:30 07/21/17 13:29 Sodium Biphosphate/ Sodium Phosphate (Fleet Enema) 132 ml DAILY PRN MS 06/21/17 13:30 07/21/17 13:29 Senna (Senokot Tab) 17.2 mg HS PO 06/21/17 21:00 07/21/17 20:59 06/21/17 21:14 17.2 MG Docusate Sodium (coLACE CAP) 100 mg BID PO 06/21/17 21:00 07/21/17 20:59 06/22/17 08:27 100 MG Multivitamins (Multivitamin Tab) 1 tab DAILY PO 06/22/17 09:00 07/22/17 08:59 06/22/17 08:28 1 TAB Hydromorphone HCl (Dilaudid Inj) 0.5 mg Q3H PRN IV 06/21/17 13:30 07/05/17 13:29 Review of Systems Constitutional: No fever, No chills Eyes: No problem reported ENT: No problem reported Respiratory: No shortness of breath Cardiovascular: No chest pain Abdomen: No pain, No nausea, No vomiting, No diarrhea Musculoskeletal: + joint pain (rt shoulder) Genitourinary - Female: No problem reported Neurologic: No problem reported Psychiatric: No problem reported Endocrine: No problem reported Hematologic / Lymphatic: No problem reported Integumentary: No problem reported Allergic / Immunologic: + environmental allergies Physical Exam Date Time Temp Pulse Resp B/P (MAP) Pulse Ox O2 Delivery O2 Flow Rate FiO2 06/22/17 07:30 36.5 67 15 130/71 (90) 97 Room Air 06/22/17 03:45 36.5 79 16 135/72 (93) 95 Room Air 06/21/17 23:27 36.6 77 16 114/67 (83) 95 Room Air 06/21/17 23:22 Room Air 06/21/17 18:15 36.4 97 18 114/66 (82) 94 Room Air 06/21/17 17:16 36.4 92 18 119/62 (81) 95 Room Air 06/21/17 16:14 36.4 06/21/17 16:13 34.8 94 18 117/76 (90) 97 Nasal Cannula 2.0 06/21/17 15:45 35.8 93 16 143/77 (99) 96 Nasal Cannula 2.0 06/21/17 15:15 93 Nasal Cannula 4.0 06/21/17 15:15 36.4 85 16 115/70 (85) 93 Nasal Cannula 4.0 85 06/21/17 15:15 93 Nasal Cannula 4.0 06/21/17 14:50 36.5 74 18 118/64 96 Nasal Cannula 4 06/21/17 14:35 72 20 116/59 96 Nasal Cannula 4 06/21/17 14:25 90 16 131/57 96 Nasal Cannula 4 06/21/17 14:15 85 17 117/68 95 Nasal Cannula 4 06/21/17 14:05 36.6 85 19 132/68 95 Nasal Cannula 4 06/21/17 13:55 88 17 132/66 97 Nasal Cannula 4 06/21/17 13:45 84 17 132/86 97 Nasal Cannula 4 06/21/17 13:35 88 19 135/71 96 Nasal Cannula 4 06/21/17 13:28 36.5 94 16 132/64 97 Nasal Cannula 4 General Appearance: WD/WN, no apparent distress Head: normocephalic, atraumatic Eyes: normal inspection, sclerae normal ENT: hearing grossly normal Neck: trachea midline Respiratory/Chest: lungs clear, normal breath sounds, no respiratory distress, no accessory muscle use Cardiovascular: regular rate, rhythm, no edema, no gallop, no murmur Abdomen/GI: normal bowel sounds, non tender, soft, no organomegaly, no pulsatile mass Back: normal inspection (with incisional scars over neck and lumbar spine) Extremities/Musculoskelatal: + pertinent finding (right upper ext in shoulder sling, dressing c/d/i) Neurologic/Psych: alert, normal mood/affect, oriented x 3 Skin: normal color, warm/dry, no rash Laboratory Results Last 24 Hours Test 06/22/17 06:14 White Blood Count 7.62 K/uL Red Blood Count 3.40 M/uL Hemoglobin 10.6 g/dL Hematocrit 31.6 % Mean Corpuscular Volume 92.9 fL Mean Corpuscular Hemoglobin 31.2 pg Mean Corpuscular Hemoglobin Concent 33.5 g/dl RDW Standard Deviation 49.1 fL RDW Coefficient of Variation 14.5 % Platelet Count 199 K/uL Mean Platelet Volume 9.2 fL Sodium Level 134 mmol/L Potassium Level 4.5 mmol/L Chloride Level 100 mmol/L Carbon Dioxide Level 30 mmol/L Anion Gap 4.0 mmol/L Blood Urea Nitrogen 12 mg/dl Creatinine 0.63 mg/dl Est Creatinine Clear Calc Drug Dose 57.3 ml/min Estimated GFR () 98.2 Estimated GFR (Non- 84.7 BUN/Creatinine Ratio 19.0 Random Glucose 116 mg/dl Calcium Level 8.1 mg/dl Assessment & Plan Pt is an 82 yo female with a h/o Anxiety disorder, Osteoarthritis/Polyarthritis with numerous Orthopedic Surgeries,H/o TMJ disorder, Sciatica, GERD, and Dyslipidemia, here POD#1 s/p Right reverse TSA. Rt Reverse TSA--doing very well post-operatively -DVT proph- SCDs, no chemical means at this point -PT/OT evals, plan to go home tomorrow -f/u Ortho as planned -pain control Oxycontin -labs acceptable, dc IVFs Polyarthritis/Severe OA,Sciatica, Neck and Back pain--all stable -pain control as above, usually takes tylenol at home Anxiety disorder-stable -continue home prn lorazepam GERD-listed in chart as PMH, but not on meds at home -continue PPI while here Dyslipidemia-takes supplements including fish oil and a natural cholesterol pill at home, unsure of what main ingredients are -ok to continue those at home as per previous, likely RYR Proph-SCDs, PPI Dispo- to home tomorrow Thank you for this Medical Consultation. No changes made to her regimen or any other recommendations at this time. Will sign off on this consult. Please reconsult the hospitalist service if an acute issue arises. Additional Copies To Osei Agudelo M.D.
[2017-06-22 11:55] VITALS: BP 126/69; PULSE 78; TEMP 36.7; O2SAT 92
--- NOTE | 2017-06-22 12:48 | Anesthesiology Progress Note ---
Anesthesia Post Op Note Date & Time Jun 22, 2017 at 12:47 Vital Signs Pain Intensity: 0.0 Vital Signs Past 12 Hours Date Time Temp Pulse Resp B/P (MAP) Pulse Ox O2 Delivery O2 Flow Rate FiO2 06/22/17 11:55 36.7 78 16 126/69 (88) 92 Room Air 06/22/17 07:40 Room Air 06/22/17 07:30 36.5 67 15 130/71 (90) 97 Room Air 06/22/17 03:45 36.5 79 16 135/72 (93) 95 Room Air Notes Mental Status: alert / awake / arousable, participated in evaluation Pt Amnestic to Procedure: Yes Nausea / Vomiting: adequately controlled Pain: adequately controlled Airway Patency, RR, SpO2: stable & adequate BP & HR: stable & adequate Hydration State: stable & adequate Anesthetic Complications: no major complications apparent
[2017-06-22] MEDS ORDERED: NURSING VERBAL MED ORDER ONE (14:00)
[2017-06-22 15:06] VITALS: BP 134/75; PULSE 78; TEMP 36.8; O2SAT 95
[2017-06-22] MEDS: ONDANSETRON INJ 2 MG/ML 2 ML VIAL IV PRN (15:21)
[2017-06-22] MEDS: LORAZEPAM 0.5 MG TAB PO PRN (20:59)
[2017-06-22] MEDS: SENNA 8.6 MG TAB PO SCH (21:00)
[2017-06-22 22:50] VITALS: BP 109/62; PULSE 82; TEMP 36.5; O2SAT 92
[2017-06-23] MEDS: ACETAMINOPHEN 500 MG TAB PO SCH ×2 (05:43→14:22)
[2017-06-23] MEDS: LORAZEPAM 0.5 MG TAB PO PRN (05:44)
[2017-06-23 06:13] LABS: HEMATOCRIT 32.8 % (37-47); MEAN CELL VOLUME 92.9 fL (80-100); MEAN CORPUSCULAR HEMOGLOBIN 31.4 pg (25-34); MEAN CORPUSCULAR HGB CONC 33.8 g/dl (32-36); MEAN PLATELET VOLUME 9.3 fL (7.4-10.4); PLATELET COUNT 215 K/uL (130-400); RED BLOOD COUNT 3.53 M/uL (4.2-5.4); WHITE BLOOD COUNT 8.96 K/uL (4.8-10.8)
[2017-06-23 06:40] LABS: BUN/CREATININE RATIO 13.8 (10-20); CALCIUM 8.4 mg/dl (8.5-10.1); CREATININE 0.62 mg/dl (0.60-1.20); POTASSIUM 4.2 mmol/L (3.5-5.1)
[2017-06-23 07:20] VITALS: BP 125/66; PULSE 96; TEMP 36.9; O2SAT 92
[2017-06-23] MEDS: ONDANSETRON INJ 2 MG/ML 2 ML VIAL IV PRN (07:50)
[2017-06-23] MEDS: DOCUSATE SODIUM 100 MG CAP PO SCH (09:17)
[2017-06-23] MEDS: PANTOprazole SOD 40 MG TAB PO SCH (09:17)
[2017-06-23] MEDS: MULTIVITAMIN TAB PO SCH (09:17)
[2017-06-23] MEDS: OXYCODONE HCL 10 MG TABCR (OXYCONTIN) PO SCH (09:17)
--- NOTE | 2017-06-23 10:35 | Orthopedic Progress Note ---
Orthopedic Progress Note Date of Service Jun 23, 2017. Subjective Post OP Day: 2 Reports: pain controlled w PO medications, Denies: feeling well, complaints, chest pain, SOB, nausea / vomiting, light headedness, calf pain Objective N/V intact, capillary refill less than 2 sec., dressing C/D/I, incision C/D/I, A &O x3 fingers mobile, sling in tact Date Time Temp Pulse Resp B/P (MAP) Pulse Ox O2 Delivery O2 Flow Rate FiO2 06/23/17 07:45 Room Air 06/23/17 07:20 36.9 96 16 125/66 (85) 92 Room Air 06/23/17 00:11 Room Air 06/22/17 22:50 36.5 82 16 109/62 (78) 92 Room Air 06/22/17 15:15 Room Air 06/22/17 15:06 36.8 78 18 134/75 (94) 95 Room Air 06/22/17 11:55 36.7 78 16 126/69 (88) 92 Room Air Laboratory Results 24 Hours: Test 06/23/17 05:55 Hematocrit 32.8 % Hemoglobin 11.1 g/dL Assessment & Plan Assessment: POD#2 sp right Reverse TSA with biceps tenodesis Plan: PT/OT DVT proph- Pain management- Laurita, Oxycontin DC planning- DC to home today
[2017-06-23] MEDS ORDERED: OXYSR10 PO (10:41)
[2017-06-23] MEDS ORDERED: RXC5 PO (10:41)
[2017-06-23] MEDS ORDERED: ONDA8TAB6 PO (10:41)
[2017-06-23] MEDS ORDERED: ACET-24 PO (10:41)
--- NOTE | 2017-06-23 10:42 | Discharge Instructions ---
Discharge Instructions Date of Service Jun 23, 2017. Admission Reason for Admission: Right Shoulder Rotator Cuff Arthropathy Discharge Discharge Diagnosis / Problem: Right reversed TSA, biceps tenodesis Discharge Goals Goal(s): Improve function Activity Recommendations Activity Limitations: as noted below . Instructions / Follow-Up Instructions / Follow-Up ACTIVITY RECOMMENDATIONS: SELF CARE INSTRUCTIONS AFTER TOTAL SHOULDER ARTHROPLASTY REVERSE A. You may do daily exercises as taught in physical therapy while in hospital. No lifting with the operative arm. B. You are to wear your sling/immobilizer at all times EXCEPT when performing your daily exercises and for hygiene purposes. C. You may perform dry, daily dressing changes. Please keep your incision covered. You may shower 48 hours after surgery. Do not apply soap or any ointment/ lotions directly over incision. Do not soak incision in bath tub/swimming pool. D. You may use ice as needed to operative shoulder. SPECIAL CARE INSTRUCTIONS: VERY IMPORTANT TO READ AND REVIEW A. There are a few signs you need to watch for after you are home. Call [facility] at [phone] if you experience any of the followin. Increased severe shoulder pain. Some pain is expected especially when you exercise. 2. Increased swelling in you shoulder or arm; pain or swelling in either upper extremity. 3. Any fluid drainage from the incision. 4. Shortness of breath or chest pain. B. Please call [facility] at [phone] if you have any questions or concerns about your operation or recovery. C. Call your physician if: 1. Temperature is greater than 101 degrees (F). 2. Pain is not relieved by prescribed pain medications. 3. Increase drainage or redness from incision. 4. Unanswered questions or concerns. FOLLOW UP VISIT: Please call [facility] at [phone] to schedule a follow up appointment with Dr. Sykes or his PA in 12-14 days from your surgery date. Current Hospital Diet Patient's current hospital diet: Regular Diet Discharge Diet Recommended Diet: Regular Diet Procedures Procedures Performed: Right Reverse Total Shoulder Arthroplasty; Rotator Cuff Repair; Biceps Tenodesis Pending Studies Studies pending at discharge: no Laboratory Results Hemoglobin A1c Test 05/26/17 10:30 Range/Units Estimated Average Glucose 114 mg/dl Hemoglobin A1c 5.6 4.5-5.6 % Medical Emergencies . Who to Call and When: Medical Emergencies: If at any time you feel your situation is an emergency, please call 911 immediately. . Non-Emergent Contact Non-Emergency issues call your: Primary Care Provider . "Provider Documentation" section prepared by Eliceo Samson. . VTE Core Measure Inpt VTE Proph given/why not?: Ra Tran, SCD's [place] Drug Monitoring Program Search Results: patient reviewed within database, no issues identified
[2017-06-23] MEDS: OXYCODONE HCL IR 5 MG TAB (IMMEDIATE RELEASE) PO PRN (13:14)
[2017-06-23 14:43] VITALS: BP 125/66; PULSE 96; TEMP 36.9; O2SAT 92
== END 2017-06-23 15:55 | disposition home health service (06) | DRG 483 ==
LOC: C.ACU 08:21 → C.3E 09:46 → ENRESERV 14:44
PROVIDERS: ADMIT Orthopaedic Surgery Sports Medicine; ATTEND Orthopaedic Surgery Sports Medicine
PROC: 0PPC04Z Removal of Internal Fixation Device from Right Humeral Head, Open Approach (ICD-10-PCS; principal; 2017-06-21 10:55)
PROC: 0KQ70ZZ Repair Right Upper Arm Muscle, Open Approach (ICD-10-PCS; principal; 2017-06-21 10:55)
PROC: 0RRJ00Z Replacement of Right Shoulder Joint with Reverse Ball and Socket Synthetic Substitute, Open Approach (ICD-10-PCS; principal; 2017-06-21 10:55)
DX: M19.011 Primary osteoarthritis, right shoulder (principal); M62.121 Other rupture of muscle (nontraumatic), right upper arm; F41.9 Anxiety disorder, unspecified; K21.9 Gastro-esophageal reflux disease without esophagitis; E78.5 Hyperlipidemia, unspecified; Z98.890 Other specified postprocedural states; Z82.49 Family history of ischemic heart disease and other diseases of the circulatory system; Z82.3 Family history of stroke; Z80.8 Family history of malignant neoplasm of other organs or systems

== ENCOUNTER → 2017-07-18 | Outpatient (CLI) | payer OTHER ==
[~2017-07-18] MED LIST changes: -ACET-1256 PO; +ACET-24 PO; -ACETAMINOPHEN 500 MG TAB PO SCH; -CeleBREX 200 MG CAP PO SCH; -DEXAMETHASONE 4 MG TAB PO SCH; -FAMOTIDINE 20 MG TAB PO SCH; -GABAPENTIN 300 MG CAP PO SCH; -LACTATED RINGER'S 1000ML 1,000 ML IV SCH; -LACTATED RINGER'S 1000ML IV SCH; -METOCLOPRAMIDE HCL 10 MG TAB PO SCH; +ONDA8TAB6 PO; +OXYSR10 PO; +RXC5 PO; -VANCOMYCIN INJ 900 MG in SODIUM CHLORIDE 0.9% 250ML 250 ML IV SCH
== END | disposition home or self-care (01) ==
LOC: C.LAB 14:19
PROVIDERS: ATTEND Internal Medicine
DX: R19.7 Diarrhea, unspecified (principal)

== ENCOUNTER → 2017-09-20 | Outpatient (CLI) | payer OTHER | END | disposition home or self-care (01) | LOC: C.LAB1850 12:24 | PROVIDERS: ATTEND Internal Medicine | DX: N39.0 Urinary tract infection, site not specified (principal) ==

== ENCOUNTER → 2017-10-30 | Outpatient (CLI) | payer OTHER ==
--- NOTE | 2017-10-31 07:56 | MAMMOGRAPHY REPORT ---
BILATERAL DIGITAL SCREENING MAMMOGRAM TOMOSYNTHESIS WITH CAD: 10/30/2017 CLINICAL HISTORY: Routine screening. TECHNIQUE: Breast tomosynthesis in addition to standard 2D mammography was performed. Current study was also evaluated with a Computer Aided Detection (CAD) system. COMPARISON: Comparison is made to exams dated: 10/24/2016 mammogram, 10/14/2015 mammogram, 10/07/2013 ma mmogram, 11/22/2011 mammogram, 11/16/2010 mammogram, and 11/11/2009 mammogram - [facility] nter. BREAST COMPOSITION: There are scattered areas of fibroglandular density in both breasts. FINDINGS: There are moderate vascular calcifications in the breasts. No suspicious mass, architectur al distortion or cluster of microcalcifications is seen. IMPRESSION: ACR BI-RADS CATEGORY 1: NEGATIVE There is no mammographic evidence of malignancy. A 1 year screening mammogram is recommended. The pa tient will receive written notification of the results. Approximately 10% of breast cancers are not detected with mammography. A negative mammographic report should not delay biopsy if a clinically suggestive mass is present. Tara Shaver M.D. ay/:10/30/2017 16:20:28 Retail Receiving Clerk: Nicole GOMEZ(Earl)(Francisca), [facility] letter sent: Normal 1/2 BI-RADS Code: ACR BI-RADS Category 1: Negative
== END | disposition home or self-care (01) ==
LOC: C.MAMM 08:46
PROVIDERS: ATTEND Internal Medicine
DX: Z12.31 Encounter for screening mammogram for malignant neoplasm of breast (principal)

== ENCOUNTER 2019-02-20 10:28 | Inpatient (IN) ==
--- NOTE | 2019-02-04 08:48 | PAT Medication Instructions ---
Medication Instructions Date of Service February 04, 2019 Home Medications Digestassure 1 cap PO TID Doxycycline Cream 1 dose TOPICAL NEEDED clindamycin HCl 600 mg PO NEEDED hydrochlorothiazide 25 mg PO QAM lorazepam 0.5 mg PO NEEDED meloxicam [Mobic] 7.5 mg PO QAM multivitamin 7 cap PO DAILY phytosterol combination no.1 [Cholest Care] 800 mg PO TID Continue as directed clindamycin HCl 600 mg PO NEEDED ASK your surgeon for instructions meloxicam [Mobic] 7.5 mg PO QAM STOP taking 2 weeks before surgery Digestassure 1 cap PO TID phytosterol combination no.1 [Cholest Care] 800 mg PO TID STOP taking 24 hours before surgery Doxycycline Cream 1 dose TOPICAL NEEDED DO NOT take the morning of surgery hydrochlorothiazide 25 mg PO QAM multivitamin 7 cap PO DAILY Take morning of surgery With a small sip of water, OTHERWISE NOTHING TO EAT OR DRINK AFTER MIDNIGHT: lorazepam 0.5 mg PO NEEDED (if needed; stop 4 hours before surgery) Take evening before surgery lorazepam 0.5 mg PO NEEDED Other Notes If you have any questions please call us at [phone] or [phone] or [phone] or [phone]
--- NOTE | 2019-02-04 09:19 | Anesthesiology Consultation ---
Date of Service February 04, 2019 Assessment & Plan (1) Encounter for pre-operative examination: Chart Review Chart Review: Acceptable Risk for Surgery and Patient seen in Pre Admission Testing Consults Requested medical (Dr. Agudelo (02/08)) -Patient was seen by PCP on 02/08 for preoperative evaluation. Per note from that visit, "Using the revised cardiac risk index, patient is low risk of adverse outcomes with non-cardiac surgery. Patient is acceptable risk for surgery." -Patient was seen in ER for hypertension on 02/11 and new labs were drawn, but BP came down without medication and patient was advised to continue following with PCP as needed. Teaching & Discussion Pre-Anesthesia Teaching/Discussion Notes: Instructed NPO after midnight before surgery, except medications with 15 cc of water. Medication instructions provided according to the PAT guidelines. History Surgery Operation Date: 02/20/19 10:20 Proposed Procedures p Left Reverse Total Shoulder Arthroplasty - Walt Sykes MD Height/Weight Height: 4 ft 9 in Weight: 61.7 kg Allergies Allergy/AdvReac Type Severity Reaction Status Date / Time Iodinated Contrast- Oral and Allergy Severe DIFFICULTY Verified 02/11/19 12:57 IV Dye BREATHING adhesive Allergy Unknown tape = red Verified 02/11/19 12:57 skin Cipro Allergy Unknown HIVES Verified 06/21/17 08:43 ciprofloxacin Allergy Unknown HIVES Verified 02/11/19 12:57 Penicillins Allergy Unknown HIVES Verified 02/11/19 12:57 Sulfa (Sulfonamide Allergy Unknown "SULFA Verified 02/11/19 12:57 Antibiotics) DRUGS" = HIVES tramadol Allergy Unknown NAUSEA AND Verified 02/11/19 12:57 VOMITING atorvastatin AdvReac Unknown SEVERE Verified 02/11/19 12:57 MUSCLE PAIN morphine AdvReac Unknown SEVERE Verified 02/11/19 12:57 DELERIUM simvastatin AdvReac Unknown SEVERE Verified 02/11/19 12:57 MUSCLE ACHES Medications Home Medications Medication Instructions Recorded Confirmed Last Taken hydrochlorothiazide 25 mg PO QAM 01/29/19 02/11/19 02/11/19 fiber tablet 1 tab PO DAILY tab 02/06/19 02/11/19 02/11/19 lorazepam 0.5 mg tablet 0.5 mg PO BID PRN tab 02/06/19 02/11/19 02/11/19 multivitamin capsule 1 cap PO DAILY cap 02/06/19 02/11/19 02/11/19 phytosterol combination no.1 500 1,500 mg PO DAILY cap 02/06/19 02/11/19 02/11/19 mg capsule amlodipine 5 mg PO DAILY 02/11/19 02/11/19 02/11/19 meloxicam 7.5 mg PO DAILY 02/11/19 02/11/19 02/11/19 Exercise / Class Metabolic Activity II 4-5 Yardwork/Stairs/Walk up hill (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 Able to climb FOS. Denies CP or SOB. ) Past Anesthesia History No Hx of Anesthesia Complications and No Family Hx of Anesthesia Complications History of PONV No Hx of Motion Sickness and History of PONV Social History Smoking Status: Never smoker Do You Dip or Chew Tobacco: No Hx Alcohol Use: No substance use type: does not use Review of Systems Patient denies chest pain, shortness of breath, dyspnea on exertion, reflux, cough, wheezing, palpitations. +Joint Pain (Shoulder, Knee, Back) Physical Exam Vital Signs BP: 156/79 P: 74 R: 16 T: 98.5 SPO2: 97% on RA ENMT Mouth: + dental restorations Thyromental Distance: > or= 3.5 Finger Breadths (4) Mallampati Class: II Neck normal visual inspection and trachea midline; neck extension not limited Respiratory normal respiratory effort Auscultation: lungs clear to auscultation bilaterally Cardiovascular Rate/Rhythm: regular rate and regular rhythm Heart Sounds: no murmur Vessels: no carotid bruit Neurologic moves all extremities Psychiatric Orientation: alert and oriented x 3 Testing Laboratory Results 02/04/19 09:50 02/04/19 09:50 02/04/19 02/04/19 02/04/19 09:50 09:50 09:50 PT 9.4 INR 0.9 APTT 26.2 Hemoglobin A1c 6.1 H Urine Color Urine Appearance Urine pH Ur Specific [place] Urine Protein Urine Glucose (UA) Urine Ketones Urine Nitrite Ur Leukocyte Esterase Blood Type O Positive Antibody Screen NEGATIVE 02/04/19 09:50 PT INR APTT Hemoglobin A1c Urine Color Dark Yellow Urine Appearance Clear Urine pH 8.0 H Ur Specific [place] 1.014 Urine Protein Negative Urine Glucose (UA) Negative Urine Ketones Negative Urine Nitrite Negative Ur Leukocyte Esterase Negative Blood Type Antibody Screen 02/11/19 WBC: 5.62 H/H: 14.2/40.9 PLATELETS: 249 SODIUM: 132 POTASSIUM: 4.7 CHLORIDE: 96 CO2: 31 BUN: 20 CREATININE: 0.85 GLUCOSE: 98 Electrocardiogram Date: 11/30/18 Findings: + no change from (10/17/18) Normal sinus rhythm with sinus arrhythmia @ 75 bpm Left axis deviation Chest X-Ray Date: 10/17/18 Findings: + NAD FINDINGS: Thoracic and lumbar spinal fusion hardware is again noted. There is a right total shoulder arthroplasty. No pleural effusions. No pneumothorax. Moderate hiatus hernia, unchanged. The heart remains mildly enlarged. The lungs are clear. No evidence for pulmonary edema. IMPRESSION: 1. Mild cardiomegaly. 2. Moderate hiatus hernia, unchanged. Stress Test Date: 11/13/17 Type: exercise Stress ECHO: 1. Negative stress echo for ischemia at 99% MPHR. 2. Negative exercise ECG for ischemia at 99% MPHR. 3. Hypertensive blood pressure response to exercise. 4. No arrhythmia. 5. Study terminated due to fatigue. No chest pain reported. 6. Good exercise tolerance. ECHO: 1. Normal left ventricular size and systolic function. EF 60-65%. No regional wall motion abnormalities. No left ventricular hypertrophy. Type I diastolic dysfunction. 2. Mild mitral regurgitation. 3. Normal estimated right ventricular systolic pressure, assuming normal right atrial pressure (IVC not visualized). STRESS EC.No significant ST segment changes were seen with exercise.
[2019-02-04 10:10] LABS: Appearance Urine Clear (Clear); Basophils # (auto) 0.02 K/uL (0-0.2); Basophils % (auto) 0.4 %; Bilirubin Urine Negative (Negative); Blood Urine Negative (Negative); Color Urine Dark Yellow; Eosinophils # (auto) 0.03 K/uL (0-0.5); Eosinophils % (auto) 0.6 %; Glucose Urine UA Negative (Negative); Hematocrit (blood only) 39.1 % (37-47); Hemoglobin 13.2 g/dL (12.0-16.0); Immature Granulocytes # (auto) 0.01 K/uL (0.00-0.02); Immature Granulocytes % (auto) 0.2 %; Ketones Urine Negative (Negative); Leukocyte Esterase Urine Negative (Negative); Mean Corpuscular Hgb Conc 33.8 g/dL (32-36); Mean Corpuscular Volume 92.4 fL (80-100); Mean Platelet Volume 8.9 fL (7.4-10.4); Monocytes # (auto) 0.54 K/uL (0.11-0.59); Monocytes % (auto) 10.4 %; Neutrophils # (auto) 3.19 K/uL (1.4-6.5); Neutrophils % (auto) 61.4 %; Nitrite Urine Negative (Negative); Platelet Count 264 K/uL (130-400); Protein Urine Negative (Negative); RDW Coefficient of Variation 14.5 % (11.5-14.5); Red Blood Count 4.23 M/uL (4.2-5.4); Specific Gravity Urine 1.014 (1.000-1.030); Urobilinogen Urine Negative (Negative); White Blood Count 5.19 K/uL (4.8-10.8)
[2019-02-04 10:19] LABS: Estimated Average Glucose 128 mg/dl; Hemoglobin A1C 6.1 % (4.5-5.6)
[2019-02-04 10:21] LABS: INR 0.9 (0.9-1.1); Partial Thromboplastin Time 26.2 Seconds (21.0-31.0); Prothrombin Time 9.4 Seconds (9.0-12.0)
[2019-02-04 12:06] LABS: Albumin Level 3.6 gm/dl (3.4-5.0); BUN Creatinine Ratio 28.7 (10-20); Calcium 9.1 mg/dl (8.5-10.1); Creatinine Clr Calc Pharmacy 40.1 ml/min; Est GFR (African American) 76.6; Est GFR (Non-African American) 66.1; Potassium 4.6 mmol/L (3.5-5.1)
--- NOTE | 2019-02-19 13:34 | History and Physical Report ---
DATE OF ADMISSION: 02/20/2019 CHIEF COMPLAINT: Chronic left shoulder pain and weakness. HISTORY OF PRESENT ILLNESS: This is an 83-year-old female patient of Dr. Sykes'mayco complaining of chronic left shoulder pain and weakness, longstanding, now progressively getting worse. The patient has failed conservative treatment. The patient has been diagnosed with arthritis and rotator cuff arthropathy and wishes to proceed with a left reversed total shoulder arthroplasty. PAST MEDICAL HISTORY: Hypertension, anxiety, rheumatoid arthritis, osteoarthritis, spine problems, neck problems, back problems, sciatica. SOCIAL HISTORY: Nonsmoker, nondrinker. FAMILY HISTORY: Noncontributory. REVIEW OF SYSTEMS: Chronic left shoulder pain and weakness. Otherwise, denies any shortness of breath, chest pain, nausea, vomiting or any other joint complaints. PAST SURGICAL HISTORY: Back surgery x2, bilateral knees surgeries, right shoulder surgery, bilateral thumb surgeries. MEDICATIONS: Amlodipine 5 mg daily, hydrochlorothiazide 12.5 mg daily, multivitamin daily, Fiber 625 mg daily, Mobic 7.5 mg daily. ALLERGIES: INCLUDE PENICILLIN AND SULFA. PHYSICAL EXAMINATION: GENERAL: Well-developed, well-nourished 83-year-old female in no acute distress. She is alert and oriented x3 and pleasant. HEENT: Normocephalic, atraumatic. Extraocular motions are intact. Pupils are equal, reactive to light. HEART: Regular rate and rhythm, no murmurs. LUNGS: Clear. ABDOMEN: Soft, nontender, bowel sounds present. EXTREMITIES: Left shoulder reveals full range of motion with pain and crepitation. She has 3/5 strength globally. NEUROLOGIC: Neurovascularly, she is intact in the left upper extremity. DIAGNOSES: Left shoulder rotator cuff arthropathy with a history of hypertension, anxiety, rheumatoid arthritis, osteoarthritis, TMJ and back problems from cervical to lumbar. PLAN: The patient was advised of her diagnosis. Indications, risks, benefits, postop course have all been reviewed. The patient wished to proceed with a left reversed total shoulder arthroplasty. Necessary consent forms, preoperative testing and clearances will be obtained.
[~2019-02-20 10:28] MED LIST changes: -ACET-24 PO; +ACETAMINOPHEN 500 MG TAB PO SCH; -ATV5 PO; +FAMOTIDINE 20 MG TAB PO SCH; -FIBER TAB PO; +GABAPENTIN 300 MG PO SCH; +LR 15ML/HR IV SCH; +METOCLOPRAMIDE HCL 10 MG TABLET PO SCH; -MISCCAP PO; -MULT-916 PO; -ONDA8TAB6 PO; -OXYSR10 PO; +ROPIVACAINE 0.5% 5 MG/ML 30 ML VIAL ONE; -RXC5 PO; +VANCOMYCIN HCL 1,000 MG in SODIUM CHLORIDE 0.9% 250 ML IV SCH; +VANCOMYCIN HCL 1,000 MG/270 ML BAG IV SCH; +dexAMETHasone 4 MG TAB PO SCH
[2019-02-20] MEDS ORDERED: DEXAMETHASONE SOD INJ 4 MG/ML VIAL ONE (10:49)
[2019-02-20] MEDS ORDERED: PROPOFOL IV EMULSION 10 MG/ML 20 ML VIAL IV ONE (10:49)
[2019-02-20] MEDS ORDERED: fentaNYL citrate 100 MCG/2 ML VIAL ONE (10:49)
[2019-02-20] MEDS ORDERED: ONDANSETRON INJ 2 MG/ML 2 ML VIAL ONE ×2 (10:49→16:01)
[2019-02-20] MEDS ORDERED: LIDOCAINE HCL 2% 2 ML VIAL/AMP(20MG/ML) INFIL ONE (10:49)
[2019-02-20] MEDS ORDERED: SCOPOLAMINE 1.5 MG TDSY ONE (12:35)
[2019-02-20] MEDS ORDERED: HYDROmorphone INJ 1 MG/ML SYRINGE IV PRN (12:36)
[2019-02-20] MEDS ORDERED: ePHEDrine sulfate 50 MG/ML AMP IV PRN (12:36)
[2019-02-20] MEDS ORDERED: ATROPINE SULFATE 0.1 MG/ML 10ML SYR IV PRN (12:36)
[2019-02-20] MEDS ORDERED: BACITRACIN INJ 50,000 UNIT VIAL ONE (13:04)
[2019-02-20] MEDS ORDERED: MIDAZOLAM HCL 1 MG/ML 2ML VIAL ONE ×2 (13:14)
--- NOTE | 2019-02-20 13:21 | History & Physical Bridge Note ---
Date of Service February 20, 2019 History & Physical Bridge Note I have examined the patient, reviewed the History & Physical and in the interval since the performance of the History & Physical I have noted the following changes of clinical significance: no changes noted
[2019-02-20] MEDS ORDERED: PHENYLEPHRINE 100MCG/ML 5ML SYR ONE (14:00)
[2019-02-20] MEDS ORDERED: ePHEDrine sulfate 50 MG/ML SYR ONE (14:00)
[2019-02-20] MEDS ORDERED: PHENYLEPHRINE HCL 10 MG/ML VIAL ONE (14:11)
[2019-02-20] MEDS ORDERED: GLYCOPYRROLATE 0.2 MG/ML VIAL ONE (15:02)
[2019-02-20] MEDS ORDERED: NEOSTIGMINE METHYLSULFATE 5 MG/5 ML SYR ONE (15:02)
--- NOTE | 2019-02-20 15:31 | Post Operative Brief Note ---
Immediate Post Op Note v1 Date of Surgery February 20, 2019 Pre & Post Diagnosis Operation Date: 02/20/19 12:45 Pre-Op Diagnosis: Left Shoulder Rotator Cuff Arthropathy with end-stage glenohumeral osteoarthritis Post-Op Diagnosis: Left Shoulder Rotator Cuff Arthropathy with end-stage glenohumeral osteoarthritis and chronic ruptured biceps tendon Procedure Operation Date: 02/20/19 12:45 Actual Procedures p Left Reverse Total Shoulder Arthroplasty, uncemented(Left) - Walt Sykes MD Surgeon Walt Sykes MD Water Meter Reader Eliceo CAMPOS Estimated Blood Loss 75 Findings Consistent with Post-Op Diagnosis Specimens Humeral head Drains Hemovac Drain Anesthesia Type General Regional Complications none Disposition Accompanied Patient To Recovery: No Disposition: Recovery Room Overlapping Procedure I was present for: the critical portions of procedure.
[2019-02-20] MEDS ORDERED: ONDANSETRON INJ 2 MG/ML 2 ML VIAL IV STA (16:02)
--- NOTE | 2019-02-20 16:05 | XRay Report ---
XR shoulder LT min 2V routine CLINICAL HISTORY: 83 years-old Female presenting with Post shoulder surgery. TECHNIQUE: Frontal and transscapular Y views of the left shoulder were obtained. COMPARISON: Chest x-ray from 02/11/2019. FINDINGS: There has been interval reverse total left shoulder arthroplasty. Soft tissue emphysema and skin stap les in place. A surgical drain is noted. No malalignment. No periprosthetic fracture. Partially visua lized thoracolumbar fusion hardware. Left basilar opacity new from prior. IMPRESSION: 1. Expected postsurgical appearance status post total reverse left shoulder arthroplasty. 2. Suspected left basilar atelectasis. Electronically signed by: Osei Davis M.D. 02/20/2019 4:04 PM
--- NOTE | 2019-02-20 16:25 | Anesthesiology Progress Note ---
Date of Service February 20, 2019 Anesthesia Post Procedure Vital Signs Vital Signs: Temp Pulse Pulse Resp BP Pulse Ox 02/20/19 16:10 36.3 C L 97 H 21 157/83 H 96 02/20/19 16:00 95 H 17 163/88 H 96 02/20/19 15:50 92 H 15 150/83 H 97 02/20/19 15:40 36.8 C 98 H 13 150/85 H 97 02/20/19 12:30 88 18 165/98 H 95 02/20/19 12:05 97 H 20 184/119 H 02/20/19 11:00 36.7 C 98 H 18 208/94 H 97 Transfer of Care Handoff Completed per policy Notes Mental Status: alert / awake / arousable Patient Amnestic to Procedure: Yes Nausea / Vomiting: adequately controlled Pain: adequately controlled Airway Patency, RR, SpO2: stable & adequate BP & HR: stable & adequate Hydration State: stable & adequate Anesthetic Complications: no major complications apparent and Pt Satisfied with anesthetic care
[2019-02-20] MEDS ORDERED: ONDANSETRON INJ 2 MG/ML 2 ML VIAL IV PRN (16:35)
[2019-02-20] MEDS ORDERED: HYDROmorphone INJ 0.5 MG/0.5 ML SYR IV PRN (16:35)
[2019-02-20] MEDS ORDERED: VANCOMYCIN CONSULT ACTIVE PRN (16:35)
[2019-02-20] MEDS ORDERED: NALOXONE HCL 0.4 MG/1 ML VIAL/CARP IV PRN (16:35)
[2019-02-20] MEDS ORDERED: MAGNESIUM HYDROXIDE SUSP 30 ML UDC PO PRN (16:35)
[2019-02-20] MEDS ORDERED: BISACODYL 10 MG SUPP PR PRN (16:35)
[2019-02-20] MEDS: SODIUM CHLORIDE 0.9% 1000ML 1,000 ML IV SCH (17:19)
--- NOTE | 2019-02-20 18:42 | Operative Report ---
Post Operative Report Pre & Post Diagnosis Operation Date: 02/20/19 12:45 Pre-Op Diagnosis: Left Shoulder Rotator Cuff Arthropathy, chronic rotator cuff tear and end-stage glenohumeral osteoarthritis Post-Op Diagnosis: Left Shoulder Rotator Cuff Arthropathy, chronic rotator cuff tear and end-stage glenohumeral osteoarthritis and retracted long head biceps tendon tear Procedure Operation Date: 02/20/19 12:45 Actual Procedures p Left Reverse Total Shoulder Arthroplasty, uncemented(Left) - Walt Sykes MD Surgeon Walt Sykes MD [employer]z Mounter Eliceo CAMPOS Estimated Blood Loss 75 Findings Consistent with Post-Op Diagnosis Specimens Humeral head Drains 2 Hemovac Anesthesia Type General Regional Complications none Disposition Accompanied Patient To Recovery: No Disposition: Recovery Room 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 She already has had rotator cuff arthropathy in both of her shoulders and had a right reverse shoulder replacement did well with that and was able to return to work. Patient now has a chronic left shoulder rotator cuff tear subscapularis upper aspect and supraspinatus and infraspinatus with retraction of the tendons and glenohumeral osteoarthritis consistent with chronic rotator cuff arthropathy. Description of Procedure The patient was taken to the operating room and anesthetized under regional block and general anesthetic. The patient was positioned on the operating table in a 30 beachchair position with a towel roll under the medial border of the left scapula. The arm was draped free to be able to manipulate the shoulder as needed. The left upper extremity was prepped and draped in usual sterile fashion. Exam demonstrated [id number] crepitation with full passive range of motion. An anterior deltopectoral approach was performed. A longitudinal incision was made in the deltopectoral interval. The skin was incised sharply. Subcutaneous flaps were elevated off the fascia. The cephalic vein was dissected out and retracted lateral with the deltoid. The clavipectoral fascia was divided at the lateral margin of the conjoined tendon and extended up to the CA ligament. The following findings were noted: There was a large bursal fluid collection over the torn rotator cuff. The upper centimeter of the subscapularis was torn and t here was a flap of tissue attached to the supraspinatus which was also torn. There was a few fibers of the infraspinatus still intact but marked tendinopathy and essentially the majority of the infraspinatus was torn and the teres minor was still intact. There was glenohumeral arthritic changes. The long head of the biceps had already torn and was retracted below the pectoralis muscle. The upper centimeter of the pectoralis was released for inferior exposure. The remaining subscapularis tendon was taken down off the lesser tuberosity using a subperiosteal dissection. A #1 Vicryl traction suture was placed into the free end of the subscapularis tendon and capsule. The subscapular muscle fibers were split longitudinally at the level of the circumflex vessels. The circumflex vessels were identified and tied off with silk ties and divided laterally. A Kitner elevator was used to free up the inferior fibers of the subscapularis off of the capsule. The axillary nerve was identified with a tug test and protected with a blunt Jacob retractor between the nerve and the capsule. The subscapularis tendon was then taken down off of the lesser tuberosity subperiosteally and subperiosteal dissection was performed along the neck of the humerus as the arm is gradually actually rotated exposing the humeral head. There were no significant inferior osteophytes but we did release the capsule off the neck of the humerus. The capsule was divided with Pascual scissors down to the glenoid released off the anterior glenoid and the rotator interval was released to meet the capsular release and a 360 release of the subscapularis was accomplished. A Fukuda retractor was placed into the joint retracting the humeral head posterior. Glenoid findings demonstrated posterior superior articular wear with eburnated exposed bone with some bone wear of the posterior superior glenoid. The labrum was resected circumferentially. an anterior- inferior and posterior inferior capsular release were performed with electrocautery and a Quiroz elevator on bone with the axillary nerve protected inferiorly by the retractor. Attention was then taken to the humeral preparation. The cutting guide was placed into the humeral head. It was positioned at 20 of retroversion. Oscillating saw was used to resect the humeral head giving the cut above the level of the posterior rotator cuff insertion site. The humerus was then prepared for the stem. I used the ascend flex stem from [email or web address]. The sizing broaches were used followed by trial broaches up to a size 4 which had the appropriate fit and fill. The appropriate sized cut protector was placed. The humerus was then retracted posterior to the glenoid. The glenoid was sized for a 25 baseplate. The guide for the baseplate was positioned in a 10 inferior tilt and the central drill hole was made. The reamer for the 25 baseplate was used. The central drill was widened for the peg. The 25 aequalis baseplate was impacted into position. The base plate was transfixed with superior and inferior locking screws and anterior and posterior compression screws with stable fixation. The fan reamer was used for the 36 millimeter glenoid sphere. After irrigation the 36 standard glenoid sphere was impacted onto the baseplate and the screw was tightened. Attention was taken back to the humerus. The cut protector was removed and the +0 3.5 mm high offset humeral tray trial was assembled to the trial stem rotated appropriately to get bony coverage and then screwed in position. A trial reduction was performed . Trial insert demonstrated good stability and no shuck. The trials were removed. 3 drill holes are made into the harder bone in the bicipital groove area and 3 #5 FiberWire sutures were placed transosseously. The canal was irrigated with antibiotic solution with bacitracin. The final component was assembled. The final component was 4B long humeral stem assembled to the +0 high offset humeral tray and the 36,+6 humeral polyethylene insert. This was then impacted into the humerus with a tight press-fit. It was reduced to the glenoid sphere. Stability was verified. Subscapularis was repaired with the #5 FiberWire sutures using Tim-Bennett suture technique. Lateral row soft tissue repair was performed with #2 FiberWire [id number] sutures. The pectoralis was repaired with #2 FiberWire [id number] sutures. The arm was taken through a range of motion which demonstrated external rotation to 50 degrees abduction to 90 degrees forward elevation to 130 degrees without any tension on repair. The implant was stable through the range of motion tested. The wound was copiously irrigated. 2 Hemovac drains were placed. The deltopectoral interval was closed with [id number] #1 Vicryl sutures. The subcutaneous tissues were closed with 2-0 Vicryl sutures. The skin was closed with adelso. Sterile dressings were applied and a shoulder immobilizer. Eliceo CAMPOS my physician commissary assistant assisted in the procedure to the entire procedure including patient positioning arm positioning prepping and draping soft tissue retraction instrument management suture management and performed the subcutaneous and skin closure and will participate in the postoperative care of the patient. I attest to the content of the Intraoperative Record and any orders documented therein. Any exceptions are noted below.
[2019-02-20] MEDS: ASPIRIN 81 MG ECTAB PO SCH (20:51)
[2019-02-20] MEDS: SENNA 8.6 MG TAB PO SCH (20:51)
[2019-02-20] MEDS: DOCUSATE SODIUM 100 MG CAP PO SCH (20:52)
[2019-02-20] MEDS: ACETAMINOPHEN 500 MG TAB PO SCH (20:52)
[2019-02-20] MEDS ORDERED: VANCOMYCIN HCL 1,000 MG in SODIUM CHLORIDE 0.9% 250 ML IV SCH (23:00)
[2019-02-21] MEDS: SODIUM CHLORIDE 0.9% 1000ML 1,000 ML IV SCH (03:58)
[2019-02-21] MEDS: ACETAMINOPHEN 500 MG TAB PO SCH ×3 (05:33→21:19)
[2019-02-21 05:48] LABS: Basophils # (auto) 0.01 K/uL (0-0.2); Basophils % (auto) 0.1 %; Hematocrit (blood only) 31.9 % (37-47); Hemoglobin 10.9 g/dL (12.0-16.0); Immature Granulocytes # (auto) 0.03 K/uL (0.00-0.02); Immature Granulocytes % (auto) 0.3 %; Lymphocytes # (auto) 0.85 K/uL (1.2-3.4); Lymphocytes % (auto) 9.4 %; Mean Corpuscular Hgb Conc 34.2 g/dL (32-36); Mean Corpuscular Volume 90.6 fL (80-100); Mean Platelet Volume 9.1 fL (7.4-10.4); Monocytes # (auto) 0.96 K/uL (0.11-0.59); Monocytes % (auto) 10.6 %; Neutrophils # (auto) 7.21 K/uL (1.4-6.5); Neutrophils % (auto) 79.6 %; Platelet Count 215 K/uL (130-400); RDW Coefficient of Variation 14.2 % (11.5-14.5); RDW Standard Deviation 47.5 fL (36.4-46.3); Red Blood Count 3.52 M/uL (4.2-5.4); White Blood Count 9.06 K/uL (4.8-10.8)
[2019-02-21 06:17] LABS: BUN Creatinine Ratio 22.1 (10-20); Calcium 8.5 mg/dl (8.5-10.1); Creatinine Clr Calc Pharmacy 40.9 ml/min; Est GFR (African American) 80.1; Est GFR (Non-African American) 69.1; Potassium 4.3 mmol/L (3.5-5.1)
[2019-02-21] MEDS ORDERED: COUGH DROP (SUGAR FREE) LOZ 24 LOZ/1 BOX BUCCAL PRN (07:39)
--- NOTE | 2019-02-21 08:57 | Orthopedic Progress Note ---
Date of Service February 21, 2019 Assessment & Plan (1) Rotator cuff arthropathy of left shoulder: POd #1, Left Reversed TSA Limited PT/ OT DVT proph- ASA D/C planning- Home w HEP As per medicine. Subjective POD #1, Doing well, denies SOB, CP, N/V. Pain controlled well. Sodium down at 131. Physical Exam Physical Exam: Left shoulder dressings c/d/i, no drainage. Drain in tact. Fingers mobile. Sling in tact A&Ox3. Results & Data Vital Signs (Past 12 Hours) Vital Signs Temp Pulse Resp BP Pulse Ox 02/21/19 07:00 36.4 C L 66 16 122/65 90 02/21/19 03:55 36.7 C 70 14 114/64 93 02/20/19 23:40 36.5 C 76 16 104/66 95
[2019-02-21] MEDS ORDERED: [UNRECOGNIZED DRUG - OTHER] PO SCH (09:00)
[2019-02-21] MEDS ORDERED: NON-FORMULARY MEDICATION (Multivitamin 1 CAP) PO SCH (09:00)
[2019-02-21] MEDS ORDERED: hydroCHLOROthiazide 25 MG TAB PO SCH (09:00)
[2019-02-21] MEDS ORDERED: FIBER PO SCH (09:00)
[2019-02-21] MEDS: ASPIRIN 81 MG ECTAB PO SCH ×2 (09:08→20:13)
[2019-02-21] MEDS: DOCUSATE SODIUM 100 MG CAP PO SCH ×2 (09:08→20:13)
[2019-02-21] MEDS: MULTIVITAMIN TAB PO SCH (09:09)
[2019-02-21] MEDS: OXYCODONE HCL IR 5 MG TAB (IMMEDIATE RELEASE) PO PRN ×3 (09:12→20:13)
--- NOTE | 2019-02-21 09:51 | Hospitalist Consultation ---
Date of Consultation February 21, 2019 Assessment & Plan (1) Rotator cuff arthropathy of left shoulder: - S/p reverse left total shoulder on 02/20/19, POD#1. - Pain control per primary team. - PT/OT evaluation. - DVT ppx with Aspirin 81 mg BID. (2) Acute anemia: - Hemoglobin trending down in setting of acute blood loss and IV fluids. - Monitor CBC qAM. (3) Hyponatremia: - Na level 131 -- baseline hyponatremia, may be related to HCTZ therapy. - Monitor Na level qAM. (4) Hypertension: - Continue HCTZ 25 mg daily with close monitoring of renal function and hyponatremia. (5) Rheumatoid arthritis: - Not currently on any therapy. (6) Anxiety: - Ativan 0.5 mg BID prn. (7) DVT prophylaxis: - Aspirin 81 mg BID. Dispo: Med/surg; will continue to follow, please call with any questions. Supervising Physician Co-Signing Physician Notes Attending Attestation - Chart reviewed in detail, care plan d/w PA Kita Montoya. I agree w/ the bradley components of her consult documentation. POD #1 s/p left total shoulder replacement. Active medical issues include hyponatremia and acute blood loss anemia. Will need serial labs. Medical team will continue to follow. Mriza Amador MD History of Present Illness Reason for Consultation: Medical Management Attending Physician: Walt Sykes MD History of Present Illness Mrs. Pena is an 83 year old female with past medical history of HTN, anxiety, rheumatoid arthritis, sciatica, osteoarthritis who presented for a planned left reverse total shoulder arthroplasty. Pt. is doing well overall. Is passing gas, has not had a BM. Denies urinary retention, chest pain, SOB. Allergies Allergy/AdvReac Type Severity Reaction Status Date / Time Iodinated Contrast- Oral and Allergy Severe DIFFICULTY Verified 03/01/19 00:25 IV Dye BREATHING adhesive Allergy Intermediate tape = red Verified 03/01/19 00:25 skin ciprofloxacin Allergy Intermediate HIVES Verified 03/01/19 00:25 Penicillins Allergy Intermediate HIVES Verified 03/01/19 00:25 Sulfa (Sulfonamide Allergy Intermediate "SULFA Verified 03/01/19 00:25 Antibiotics) DRUGS" = HIVES tramadol Allergy Intermediate NAUSEA AND Verified 03/01/19 00:25 VOMITING Cipro Allergy Unknown HIVES Verified 06/21/17 08:43 atorvastatin AdvReac Severe SEVERE Verified 03/01/19 00:25 MUSCLE PAIN morphine AdvReac Severe SEVERE Verified 03/01/19 00:25 DELERIUM simvastatin AdvReac Severe SEVERE Verified 03/01/19 00:25 MUSCLE ACHES Home Medications Home Medications Medication Instructions Recorded Confirmed Type acetaminophen [Tylenol Extra 1,000 mg PO Q8 30 Days #180 tab 02/22/19 03/01/19 Rx Strength] lorazepam 0.5 mg tablet 0.5 mg PO BID PRN #30 tab 02/25/19 03/01/19 Rx aspirin [Ecotrin Low Strength] 81 mg PO QAM 03/01/19 03/01/19 History famotidine [Pepcid] 40 mg PO HS #30 tab 03/01/19 Rx meloxicam [Mobic] 7.5 mg PO DAILY PRN 03/01/19 03/01/19 History ondansetron HCl [Zofran] 4 mg PO Q6H #6 tab 03/01/19 Rx Patient History Surgical History History of back surgery MULTIPLE - UPPER AND LOWER BACK FUSED 10/09/13 - MAC #3, ETT #7.0, Grade 1 View 05/02/12 - MAC #3, ETT #7.0 History of colonoscopy History of hand surgery TENDON PROCEDURE, BILAT THUMBS History of hysterectomy History of phacoemulsification of cataract of both eyes with intraocular lens implantation History of total left knee replacement History of total replacement of right shoulder joint 06/21/17 - MAC #3, ETT #7.0, HiLo, Grade 1 View History of total right knee replacement Nausea and vomiting after administration of anesthetic agent Family History Mother Family history non-contributory Social History Preferred Language: Divehi Communication Ability: Effective Beliefs That Will Affect Care: Congregational Congregational Beliefs: JAIN marital status: / Current Living Situation: Family and Other Current Living Situation Comment: SON Feels Safe at Home: Yes Smoking Status: Never smoker Hx Alcohol Use: No Review of Systems Review of Systems: All systems reviewed & are unremarkable except as noted in HPI & below Constitutional: no fever, no chills, no fatigue and no weakness Respiratory: no cough, no dyspnea and no dyspnea on exertion Cardiovascular: no chest pain, no palpitations and no edema Gastrointestinal: + constipation; no abdominal pain, no nausea and no vomiting Genitourinary: no difficulty urinating Musculoskeletal: no back pain and no joint pain Integumentary: no non-healing lesions Allergy / Immunological: no rash Physical Exam Physical Exam: General: Resting comfortably in no apparent distress HEENT: NC/AT; PERRLA with EOMI; [place] conjunctiva, MMM. No erythema of posterior pharynx Neck: Supple and nontender Cardiac: RRR w/o murmurs, gallops or rubs Lungs: CTA bilaterally; No rhonchi, wheezing, or rales Abdomen: Bowel normoactive X 4; Nontender to palpation Extremities: Warm. No edema present Neuro: No focal weakness Skin: No rash Results & Data Vital Signs (Past 12 Hours) Vital Signs Temp Pulse Resp BP Pulse Ox 02/21/19 07:00 36.4 C L 66 16 122/65 90 02/21/19 03:55 36.7 C 70 14 114/64 93 02/20/19 23:40 36.5 C 76 16 104/66 95 Laboratory Results 02/21/19 02/21/19 Range/Units 05:15 05:15 WBC 9.06 (4.8-10.8) K/uL RBC 3.52 L (4.2-5.4) M/uL Hgb 10.9 L (12.0-16.0) g/dL Hct 31.9 L (37-47) % MCV 90.6 (80-100) fL MCH 31.0 (25-34) pg MCHC 34.2 (32-36) g/dL RDW Std Deviation 47.5 H (36.4-46.3) fL RDW Coeff of [place] 14.2 (11.5-14.5) % Plt Count 215 (130-400) K/uL MPV 9.1 (7.4-10.4) fL Immature Gran % (Auto) 0.3 % Neut % (Auto) 79.6 % Lymph % (Auto) 9.4 % [place] % (Auto) 10.6 % Eos % (Auto) 0.0 % Baso % (Auto) 0.1 % Immature Gran # (Auto) 0.03 H (0.00-0.02) K/uL Neut # (Auto) 7.21 H (1.4-6.5) K/uL Lymph # (Auto) 0.85 L (1.2-3.4) K/uL [place] # (Auto) 0.96 H (0.11-0.59) K/uL Eos # (Auto) 0.00 (0-0.5) K/uL Baso # (Auto) 0.01 (0-0.2) K/uL Sodium 131 L (136-145) mmol/L Potassium 4.3 (3.5-5.1) mmol/L Chloride 97 L (98-107) mmol/L Carbon Dioxide 27 (21-32) mmol/L Anion Gap 7.0 (3-11) BUN 18 (7-18) mg/dl Creatinine 0.80 (0.6-1.2) mg/dl Est Cr Clr Drug Dosing 40.9 ml/min Est GFR ( Amer) 80.1 Est GFR (Non-Af Amer) 69.1 BUN/Creatinine Ratio 22.1 H (10-20) Glucose 115 H (70-99) mg/dl Calcium 8.5 (8.5-10.1) mg/dl PG Care Time/CCT Total # of Minutes Spent Total Time Spent with Patient: Total time spent is greater than 50% in coordination of care (as documented) at patient's floor/unit and/or counseling patient:
[2019-02-21] MEDS: SENNA 8.6 MG TAB PO SCH (21:19)
[2019-02-21] MEDS: LORazepam 0.5 MG TAB PO PRN (23:17)
[2019-02-22] MEDS: ACETAMINOPHEN 500 MG TAB PO SCH ×3 (05:44→21:17)
[2019-02-22 06:03] LABS: Basophils # (auto) 0.01 K/uL (0-0.2); Basophils % (auto) 0.1 %; Eosinophils # (auto) 0.04 K/uL (0-0.5); Eosinophils % (auto) 0.4 %; Hematocrit (blood only) 30.2 % (37-47); Hemoglobin 10.4 g/dL (12.0-16.0); Immature Granulocytes # (auto) 0.02 K/uL (0.00-0.02); Immature Granulocytes % (auto) 0.2 %; Lymphocytes # (auto) 1.21 K/uL (1.2-3.4); Mean Corpuscular Hgb Conc 34.4 g/dL (32-36); Monocytes # (auto) 1.33 K/uL (0.11-0.59); Monocytes % (auto) 14.3 %; Neutrophils # (auto) 6.68 K/uL (1.4-6.5); Platelet Count 210 K/uL (130-400); RDW Coefficient of Variation 14.4 % (11.5-14.5); RDW Standard Deviation 47.8 fL (36.4-46.3); Red Blood Count 3.32 M/uL (4.2-5.4); White Blood Count 9.29 K/uL (4.8-10.8)
[2019-02-22 06:37] LABS: BUN Creatinine Ratio 30.2 (10-20); Calcium 8.5 mg/dl (8.5-10.1); Creatinine Clr Calc Pharmacy 46.8 ml/min; Est GFR (African American) 94.2; Est GFR (Non-African American) 81.3; Magnesium 1.8 mg/dl (1.8-2.4); Potassium 3.8 mmol/L (3.5-5.1)
--- NOTE | 2019-02-22 07:16 | Anesthesiology Progress Note ---
Date of Service February 22, 2019 Anesthesia Post Procedure Vital Signs Vital Signs: Temp Pulse Resp BP Pulse Ox 02/22/19 06:20 36.9 C 78 14 135/70 92 02/22/19 00:23 91 H 152/71 H 02/21/19 22:59 37.1 C 91 H 14 163/76 H 92 02/21/19 14:57 36.8 C 75 16 109/60 92 02/21/19 11:39 36.9 C 79 16 136/69 94 Pain Intensity Left Shoulder: Pain Intensity: 5 Notes Mental Status: alert / awake / arousable and participated in evaluation Nausea / Vomiting: improving with treatment Pain: adequately controlled Airway Patency, RR, SpO2: stable & adequate BP & HR: stable & adequate Hydration State: stable & adequate
--- NOTE | 2019-02-22 08:10 | Orthopedic Progress Note ---
Date of Service February 22, 2019 Assessment & Plan (1) Rotator cuff arthropathy of left shoulder: POd #2, Left Reversed TSA Limited PT/ OT DVT proph- ASA D/C planning- Home w HEP only if nausea resolves and ok w medicine. As per medicine. Stop oxy and try norco. Subjective POD #2, Doing well, denies SOB, Cp, has been having nausea, thinks maybe oxycodone. Pain controlled well. Sodium down at 129 this AM. Physical Exam Physical Exam: Left shoulder incision c/d/i, no drainage, no erythema, fingers mobile, sling in tact. Results & Data Vital Signs (Past 12 Hours) Vital Signs Temp Pulse Resp BP Pulse Ox 02/22/19 06:20 36.9 C 78 14 135/70 92 02/22/19 00:23 91 H 152/71 H 02/21/19 22:59 37.1 C 91 H 14 163/76 H 92
[2019-02-22] MEDS ORDERED: HYDROCODONE/ACETAMOPHEN 5/325MG TAB PO PRN (08:17)
[2019-02-22] MEDS: DOCUSATE SODIUM 100 MG CAP PO SCH ×2 (08:23→21:16)
[2019-02-22] MEDS: ASPIRIN 81 MG ECTAB PO SCH ×2 (08:23→21:16)
[2019-02-22] MEDS: MULTIVITAMIN TAB PO SCH (08:23)
--- NOTE | 2019-02-22 11:34 | Hospitalist Progress Note ---
Date of Service February 22, 2019 Assessment & Plan (1) Rotator cuff arthropathy of left shoulder: - S/p reverse left total shoulder on 02/20/19, POD#2. - Pain control per primary team. - PT/OT - discharge to home pending improvement in hyponatremia/nausea. - DVT ppx: Aspirin 81 mg BID. (2) Acute anemia: - Hemoglobin trending down in setting of acute blood loss and IV fluids. - Monitor CBC qAM. (3) Hyponatremia: - Baseline hyponatremia, may be related to HCTZ therapy. - Na level is below baseline -- down to 129 this morning. - Held HCTZ therapy this morning. - Urine/serum studies consistent with SIADH -- serum osmo <280, high urine osmo. Start Fluid restriction of 1500 cc. - Repeat Na level this afternoon. (4) Nausea & vomiting: - Has not had a BM since admission; developed nausea overnight. - Consider KUB to rule out obstruction. - Pt. has been refusing doses of scheduled bowel regimen. (5) Hypertension: - Holding HCTZ in setting of hyponatremia. (6) Rheumatoid arthritis: - Not currently on any therapy. (7) Anxiety: - Ativan 0.5 mg BID prn. (8) DVT prophylaxis: - Aspirin 81 mg BID. Dispo: Med/surg; discharge pending improvement in nausea and hyponatremia. She is not medically stable for discharge today. Supervising Physician Co-Signing Physician Notes Attending Attestation - Chart reviewed in detail, care plan d/w BETH Montoya. I agree w/ the bradley components of her consult documentation. POD #2 s/p left total shoulder replacement. Active medical issues include hyponatremia and acute blood loss anemia. Na mildly worse today - work-up including urine osm suggests SIADH. Agree w/ fluid restriction and salt tabs. Continue serial labs. Mirza Amador MD Subjective Pt. has a decreased appetite due to nausea -- has not had any more episodes of vomiting. Is passing gas, has not had a BM. She has constipation at home but developed diarrhea prior to admission due to nerves. Na level decreased below baseline -- held HCTZ this morning, will repeat labs this afternoon. Review of Systems Review of Systems: All systems reviewed & are unremarkable except as noted in HPI & below Constitutional: + anorexia; no fever, no chills, no fatigue and no weakness Respiratory: no cough, no dyspnea and no dyspnea on exertion Cardiovascular: no chest pain, no palpitations and no edema Gastrointestinal: + nausea and + constipation; no abdominal pain and no vomiting Genitourinary: no difficulty urinating Musculoskeletal: no back pain and no joint pain Integumentary: no non-healing lesions Allergy / Immunological: no rash Physical Exam Physical Exam: General: Resting comfortably in no apparent distress HEENT: NC/AT; PERRLA with EOMI; [place] conjunctiva, MMM. No erythema of posterior pharynx Neck: Supple and nontender Cardiac: RRR Lungs: CTA bilaterally Abdomen: Bowel normoactive X 4; Nontender to palpation Extremities: Warm. No edema present Neuro: No focal weakness Skin: No rash Results & Data Vital Signs (Past 12 Hours) Vital Signs Temp Pulse Resp BP Pulse Ox 02/22/19 06:20 36.9 C 78 14 135/70 92 02/22/19 00:23 91 H 152/71 H Laboratory Results 02/22/19 02/22/19 02/22/19 Range/Units 09:27 09:27 08:19 WBC (4.8-10.8) K/uL RBC (4.2-5.4) M/uL Hgb (12.0-16.0) g/dL Hct (37-47) % MCV (80-100) fL MCH (25-34) pg MCHC (32-36) g/dL RDW Std Deviation (36.4-46.3) fL RDW Coeff of Mary Kate (11.5-14.5) % Plt Count (130-400) K/uL MPV (7.4-10.4) fL Immature Gran % (Auto) % Neut % (Auto) % Lymph % (Auto) % [place] % (Auto) % Eos % (Auto) % Baso % (Auto) % Immature Gran # (Auto) (0.00-0.02) K/uL Neut # (Auto) (1.4-6.5) K/uL Lymph # (Auto) (1.2-3.4) K/uL [place] # (Auto) (0.11-0.59) K/uL Eos # (Auto) (0-0.5) K/uL Baso # (Auto) (0-0.2) K/uL Sodium (136-145) mmol/L Potassium (3.5-5.1) mmol/L Chloride (98-107) mmol/L Carbon Dioxide (21-32) mmol/L Anion Gap (3-11) BUN (7-18) mg/dl Creatinine (0.6-1.2) mg/dl Est Cr Clr Drug Dosing ml/min Est GFR ( Amer) Est GFR (Non-Af Amer) BUN/Creatinine Ratio (10-20) Glucose (70-99) mg/dl Osmolality 264 L (280-300) mOsm/kg Calcium (8.5-10.1) mg/dl Magnesium (1.8-2.4) mg/dl Urine Osmolality 653 (500-800) mOsm/kg Ur Random Sodium 60 mmol/L 02/22/19 02/22/19 Range/Units 05:23 05:23 WBC 9.29 (4.8-10.8) K/uL RBC 3.32 L (4.2-5.4) M/uL Hgb 10.4 L (12.0-16.0) g/dL Hct 30.2 L (37-47) % MCV 91.0 (80-100) fL MCH 31.3 (25-34) pg MCHC 34.4 (32-36) g/dL RDW Std Deviation 47.8 H (36.4-46.3) fL RDW Coeff of Mary [place] 14.4 (11.5-14.5) % Plt Count 210 (130-400) K/uL MPV 9.0 (7.4-10.4) fL Immature Gran % (Auto) 0.2 % Neut % (Auto) 72.0 % Lymph % (Auto) 13.0 % [place] % (Auto) 14.3 % Eos % (Auto) 0.4 % Baso % (Auto) 0.1 % Immature Gran # (Auto) 0.02 (0.00-0.02) K/uL Neut # (Auto) 6.68 H (1.4-6.5) K/uL Lymph # (Auto) 1.21 (1.2-3.4) K/uL [place] # (Auto) 1.33 H (0.11-0.59) K/uL Eos # (Auto) 0.04 (0-0.5) K/uL Baso # (Auto) 0.01 (0-0.2) K/uL Sodium 129 L (136-145) mmol/L Potassium 3.8 (3.5-5.1) mmol/L Chloride 92 L (98-107) mmol/L Carbon Dioxide 31 (21-32) mmol/L Anion Gap 5.0 (3-11) BUN 21 H (7-18) mg/dl Creatinine 0.70 (0.6-1.2) mg/dl Est Cr Clr Drug Dosing 46.8 ml/min Est GFR ( Amer) 94.2 Est GFR (Non-Af Amer) 81.3 BUN/Creatinine Ratio 30.2 H (10-20) Glucose 113 H (70-99) mg/dl Osmolality (280-300) mOsm/kg Calcium 8.5 (8.5-10.1) mg/dl Magnesium 1.8 (1.8-2.4) mg/dl Urine Osmolality (500-800) mOsm/kg Ur Random Sodium mmol/L PG Care Time/CCT Total # of Minutes Spent Total Time Spent with Patient: Total time spent is greater than 50% in coordination of care (as documented) at patient's floor/unit and/or counseling patient:
[2019-02-22] MEDS: LORazepam 0.5 MG TAB PO PRN ×2 (11:52→22:22)
[2019-02-22] MEDS: ONDANSETRON 4 MG TAB PO PRN (16:24)
[2019-02-22 17:43] LABS: BUN Creatinine Ratio 19.3 (10-20); Calcium 8.3 mg/dl (8.5-10.1); Creatinine Clr Calc Pharmacy 43.6 ml/min; Est GFR (African American) 86.6; Est GFR (Non-African American) 74.8; Potassium 3.4 mmol/L (3.5-5.1)
[2019-02-22] MEDS ORDERED: POTASSIUM CHLORIDE 20 MEQ TABCR PO STA (18:23)
[2019-02-22] MEDS ORDERED: SODIUM CHLORIDE 1 GM TABLET PO SCH (21:00)
[2019-02-22] MEDS: SENNA 8.6 MG TAB PO SCH (21:16)
[2019-02-23] MEDS: ACETAMINOPHEN 500 MG TAB PO SCH (06:11)
[2019-02-23] MEDS: ONDANSETRON 4 MG TAB PO PRN (06:12)
[2019-02-23 06:14] LABS: BUN Creatinine Ratio 16.6 (10-20); Calcium 8.4 mg/dl (8.5-10.1); Creatinine Clr Calc Pharmacy 49.6 ml/min; Est GFR (Non-African American) 82.8; Potassium 3.9 mmol/L (3.5-5.1)
[2019-02-23] MEDS: DOCUSATE SODIUM 100 MG CAP PO SCH (07:56)
[2019-02-23] MEDS: ASPIRIN 81 MG ECTAB PO SCH (07:57)
[2019-02-23] MEDS: MULTIVITAMIN TAB PO SCH (07:57)
--- NOTE | 2019-02-23 08:49 | Orthopedic Progress Note ---
Date of Service February 23, 2019 Assessment & Plan (1) Rotator cuff arthropathy of left shoulder: POD #3, Left Reversed TSA Limited PT/ OT DVT proph- ASA D/C planning- Home today if okay with medicine as well As per medicine. Subjective POD #2, Doing well, denies SOB, Cp, has been having nausea but that is improved. Feels really good today. No pain Pain controlled well. . Physical Exam Physical Exam: Fingers mobile, NVI. Dressing in place left shoulder. incision clean and dry Results & Data Vital Signs (Past 12 Hours) Vital Signs Temp Pulse Resp BP Pulse Ox 02/23/19 06:02 36.7 C 94 H 16 139/74 02/23/19 06:00 95 02/22/19 23:20 36.9 C 81 16 135/69 93
--- NOTE | 2019-02-23 09:42 | XRay Report ---
KUB CLINICAL HISTORY: Evaluate for obstruction. Constipation. COMPARISON STUDY: CT of the abdomen and pelvis September 09, 2016. FINDINGS: Thoracolumbar spine fusion hardware and multilevel decompression are noted. The bowel gas p attern is normal. There is a moderate amount of stool within the left colon. No stool within the rect um is identified. Surgical hardware within the bilateral humeri is partially imaged. IMPRESSION: 1. No evidence for a bowel obstruction. 2. Moderate amount of stool within the left colon. Electronically signed by: Hao Guevara M.D. 02/23/2019 9:40 AM
[2019-02-23] MEDS ORDERED: CALCIUM POLYCARBOPHIL 625MG TAB PO SCH (10:00)
--- NOTE | 2019-02-23 12:42 | Hospitalist Progress Note ---
Date of Service February 23, 2019 Assessment & Plan (1) Rotator cuff arthropathy of left shoulder: - S/p reverse left total shoulder on 02/20/19, POD#3. - Pain control per primary team. - PT/OT - discharge to home this morning. - DVT ppx: Aspirin 81 mg BID. (2) Acute anemia: - Hemoglobin below baseline in setting of acute blood loss. - Monitor CBC qAM. (3) Hyponatremia: - Baseline hyponatremia, may be related to HCTZ therapy. - Na level decreased to 127 during this admission. - Held HCTZ therapy, can resume on discharge. - Urine/serum studies were consistent with SIADH -- serum osmo <280, high urine osmo. - Na level now improved back to baseline with 1500 cc fluid restriction and NaCl tablets. - Recommend outpatient monitoring of BMP. (4) Nausea & vomiting: - Has not had a BM since admission, is passing gas. - KUB showed moderate stool burden, no obstruction. - Pt. was very hesitant to take laxatives -- did take Fibercon pill this AM. Encouraged to continue bowel regimen at home. (5) Hypertension: - Held HCTZ in setting of hyponatremia, can resume at discharge. (6) Rheumatoid arthritis: - Not currently on any therapy. (7) Anxiety: - Ativan 0.5 mg BID prn. (8) DVT prophylaxis: - Aspirin 81 mg BID. Dispo: Med/surg; discharge to home this morning. Supervising Physician Co-Signing Physician Notes Attending Attestation - Chart reviewed in detail, care plan d/w BETH Montoya. I agree w/ the bradley components of her consult documentation. POD #3 s/p left total shoulder replacement. SIADH - improved s/p fluid restriction and salt tabs. H/H acceptable in the face of acute blood loss anemia. Consider Fe supplementation at d/c. Mirza Amador MD Subjective Pt. has intermittent nausea but otherwise feels better overall. She is passing gas, has not had a BM. KUB showed moderate stool, no obstruction noted. Required straight cath overnight, now voiding well. Na level improved, will be stable for discharge today. Review of Systems Review of Systems: All systems reviewed & are unremarkable except as noted in HPI & below Constitutional: no fever, no chills, no fatigue, no weakness and no anorexia Respiratory: no cough, no dyspnea, no dyspnea on exertion and no wheezing Cardiovascular: no chest pain, no palpitations and no edema Gastrointestinal: + nausea and + constipation; no abdominal pain, no vomiting and no diarrhea/loose stools Genitourinary: + difficulty urinating Musculoskeletal: no back pain and no joint pain Integumentary: no non-healing lesions Allergy / Immunological: no rash Physical Exam Physical Exam: General: Resting comfortably in no apparent distress HEENT: NC/AT; PERRLA with EOMI; [place] conjunctiva, MMM. No erythema of posterior pharynx Neck: Supple and nontender Cardiac: RRR Lungs: CTA bilaterally Abdomen: Bowel normoactive X 4; Nontender to palpation Extremities: Warm. No edema present Neuro: No focal weakness Skin: No rash Results & Data Vital Signs (Past 12 Hours) Vital Signs Temp Pulse Resp BP Pulse Ox 02/23/19 10:17 36.7 C 94 H 16 139/74 95 02/23/19 06:02 36.7 C 94 H 16 139/74 02/23/19 06:00 95 Laboratory Results 02/23/19 02/22/19 Range/Units 05:26 17:01 Sodium 135 L D 127 L (136-145) mmol/L Potassium 3.9 3.4 L (3.5-5.1) mmol/L Chloride 99 92 L (98-107) mmol/L Carbon Dioxide 32 31 (21-32) mmol/L Anion Gap 4.0 4.0 (3-11) BUN 11 14 (7-18) mg/dl Creatinine 0.66 0.75 (0.6-1.2) mg/dl Est Cr Clr Drug Dosing 49.6 43.6 ml/min Est GFR ( Amer) 96.0 86.6 Est GFR (Non-Af Amer) 82.8 74.8 BUN/Creatinine Ratio 16.6 19.3 (10-20) Glucose 115 H 141 H (70-99) mg/dl Calcium 8.4 L 8.3 L (8.5-10.1) mg/dl PG Care Time/CCT Total # of Minutes Spent Total Time Spent with Patient: Total time spent is greater than 50% in coordination of care (as documented) at patient's floor/unit and/or counseling patient:
--- NOTE | 2019-03-06 02:40 | Discharge Summary ---
HISTORY OF PRESENT ILLNESS: This is an 83-year-old female patient of Dr. Sykes's complaining of chronic left shoulder pain and weakness, longstanding, now progressively getting worse. She has been diagnosed with end-stage osteoarthritis and rotator cuff tendinopathy and wishes to proceed with a left reversed total shoulder arthroplasty. PAST MEDICAL HISTORY: Hypertension, anxiety, rheumatoid arthritis, osteoarthritis, spine problems, neck problems, back problems, and sciatica. POSTOPERATIVE COURSE: The patient underwent a left reversed total shoulder arthroplasty on 02/20/2019. She was followed closely with medical consultation, physical therapy and pain control. Postoperatively, she did become hyponatremic. She was put on a fluid restriction with the addition of sodium chloride twice daily that did resolve by discharge and her sodium was of about 128. She also became hypokalemic at 3.4, which was minor. The addition of potassium chloride was added. Her potassium level was 3.9 on discharge. PHYSICAL EXAMINATION ON DISCHARGE: EXTREMITIES: Left shoulder incision was clean, dry and intact. Velia were intact. Skin edges were approximated well. There was no redness or drainage. She had good elbow motion. Wrist and fingers were mobile. Sling was intact. Neurologically and neurovascularly she is intact in her left upper extremity. DIAGNOSES: Left reverse total shoulder arthroplasty with postoperative hyponatremia and hypokalemia, all resolved on discharge. PLAN: The patient was discharged home with home exercise program only. She will follow up with her PCP concerning her potassium and sodium. She will continue her preadmission medications with the addition of [place] only. The patient will follow up with Dr. Sykes as scheduled as an outpatient.
== END 2019-02-23 12:36 | disposition home or self-care (01) | DRG 483 ==
LOC: ASU 10:28 → 3E 15:44
DX: I10 Essential (primary) hypertension; Z98.1 Arthrodesis status; E87.1 Hypo-osmolality and hyponatremia; Z88.2 Allergy status to sulfonamides; T50.2X5A Adverse effect of carbonic-anhydrase inhibitors, benzothiadiazides and other diuretics, initial encounter; Z79.1 Long term (current) use of non-steroidal anti-inflammatories (NSAID); M75.122 Complete rotator cuff tear or rupture of left shoulder, not specified as traumatic; M19.012 Primary osteoarthritis, left shoulder; Z96.611 Presence of right artificial shoulder joint; Z88.1 Allergy status to other antibiotic agents; D62 Acute posthemorrhagic anemia; Z88.5 Allergy status to narcotic agent; Z88.0 Allergy status to penicillin; Z88.8 Allergy status to other drugs, medicaments and biological substances; Z96.653 Presence of artificial knee joint, bilateral; M06.9 Rheumatoid arthritis, unspecified; Z91.041 Radiographic dye allergy status; F41.9 Anxiety disorder, unspecified; R11.2 Nausea with vomiting, unspecified; Z79.899 Other long term (current) drug therapy; Z91.048 Other nonmedicinal substance allergy status

== ENCOUNTER 2023-11-27 09:44 | Observation (INO) ==
--- NOTE | 2023-10-31 16:06 | PAT Medication Instructions ---
Medication Instructions Date of Service October 31, 2023 Home Medications Medication Instructions Recorded lorazepam 0.5 mg tablet 0.5 mg PO BID PRN Anxiety #60 tabs 09/30/19 multivitamin (Daily Multi-Vitamin tablet) 7 tab PO QAM lorazepam 0.5 mg tablet 0.5 mg PO BID PRN Anxiety Gianfranco-Plex 1 tab PO QPM amlodipine 10 mg tablet 10 mg PO QAM famotidine 20 mg tablet (Pepcid) 20 mg PO QAM polyethylene glycol 3350 17 gram/dose oral powder (Miralax) 17 g PO DAILY STOP taking 2 weeks before surgery (or as soon as possible if surgery is within 2 weeks) Gianfranco-Plex 1 tab PO QPM DO NOT take the morning of surgery multivitamin (Daily Multi-Vitamin tablet) 7 tab PO QAM polyethylene glycol 3350 17 gram/dose oral powder (Miralax) 17 g PO DAILY Take morning of surgery With a small sip of water, OTHERWISE NOTHING TO EAT OR DRINK AFTER MIDNIGHT: lorazepam 0.5 mg tablet 0.5 mg PO BID PRN Anxiety (if needed) amlodipine 10 mg tablet 10 mg PO QAM famotidine 20 mg tablet (Pepcid) 20 mg PO QAM Take evening before surgery lorazepam 0.5 mg tablet 0.5 mg PO BID PRN Anxiety (if needed) Other Notes If you have any questions please call us at [phone] or [phone] or [phone] or [phone]
--- NOTE | 2023-11-06 14:36 | Anesthesiology Consultation ---
Date of Service November 06, 2023 Assessment & Plan (1) Encounter for pre-operative examination: Chart Review Chart Review: Acceptable Risk for Surgery and Patient seen in Pre Admission Testing - Patient is NOT an ideal OPJ candidate Per PAT appt on 11/06/23, no recent illness/disease exposures, illness related symptoms, or recent illness/disease positive tests. Will leave to surgeon's discretion if preop Covid testing needed Patient seen by cardiology 03/22/2023 = seen for routine follow-up. History of labile hypertension, iron deficiency anemia, paroxysmal atrial tachycardia, hyperlipidemia. BP initially elevated but improved on repeat. Readings well- controlled at home. Stable cardiac symptoms. Follow-up in 1 year. Left shoulder reverse TSA 02/20/2019 = done under [facility] with grade 1 view with MAC #3. ETT #7. DL x 1, atraumatic. Teaching & Discussion Pre-Anesthesia Teaching/Discussion Notes: Instructed NPO after midnight before surgery,except medications with 15 cc of water. Medication instructions provided according to the PAT guidelines. History Surgery Operation Date: 11/27/23 10:40 Proposed Procedures p Right Anterior Total Hip Arthroplasty - Elpidio Pryor, Height/Weight Height: 4 ft 10 in Weight: 61.1 kg Allergies Allergy/AdvReac Type Severity Reaction Status Date / Time Iodinated Contrast Media Allergy Severe DIFFICULTY Verified 10/27/23 09:33 BREATHING adhesive Allergy Intermediate tape = red Verified 10/27/23 09:33 skin ciprofloxacin Allergy Intermediate HIVES Verified 10/27/23 09:33 Penicillins Allergy Intermediate HIVES Verified 10/27/23 09:33 Sulfa (Sulfonamide Allergy Intermediate "SULFA Verified 10/27/23 09:33 Antibiotics) DRUGS" = HIVES tramadol Allergy Intermediate NAUSEA AND Verified 10/27/23 09:33 VOMITING Cipro Allergy Unknown HIVES Verified 06/21/17 08:43 atorvastatin AdvReac Severe SEVERE Verified 10/27/23 09:33 MUSCLE PAIN morphine AdvReac Severe SEVERE Verified 10/27/23 09:33 DELERIUM simvastatin AdvReac Severe SEVERE Verified 10/27/23 09:33 MUSCLE ACHES Medications Home Medications Medication Instructions Recorded Confirmed Last Taken multivitamin (Daily Multi-Vitamin 7 tab PO QAM 03/20/19 10/27/23 Unknown tablet) lorazepam 0.5 mg tablet 0.5 mg PO BID PRN Anxiety #60 tabs 09/30/19 10/27/23 Unknown Gianfranco-Plex 1 tab PO QPM 10/27/23 10/27/23 Unknown amlodipine 10 mg tablet 10 mg PO QAM 10/27/23 10/27/23 Unknown famotidine 20 mg tablet (Pepcid) 20 mg PO QAM 10/27/23 10/27/23 Unknown polyethylene glycol 3350 17 17 g PO DAILY 10/27/23 10/27/23 Unknown gram/dose oral powder (Miralax) Past Medical History Medical History (Updated 11/06/23 @ 15:07 by Cinthia Buitrago PA-C) Anxiety "has whitecoat syndrome" GERD (gastroesophageal reflux disease) well controlled and stable Hiatal hernia Large per 10/05/23 EGD (S) HTN (hypertension) Labile per cardio records Hyperlipidemia Lumbar stenosis with neurogenic claudication (10/09/14) Osteoarthritis Patient denies RA 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" Paroxysmal atrial tachycardia Shoulder fracture, left Since at least - "tip of bone in lt shoulder is fractured off, xrays at [facility], only has trouble w/this shoulder when laying on the left side" Exercise / Class Metabolic Activity III < 4 Walking/Shop/Light housework (one flight of stairs - no chest pain or SOB - goes slow - uses cane for support ) Past Family History Family History Mother Family history non-contributory Past Surgical History Surgical History History of back surgery multiple-under and lower back fused 10/09/13 - MAC #3, ETT #7.0, Grade 1 View 05/02/12 - MAC #3, ETT #7.0 History of colonoscopy History of esophagogastroduodenoscopy (EGD) 10/05/23- mild Schatzki ring with dilation 10/05/23 [facility] History of hand surgery tendon sx bilat. 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 History of total replacement of right shoulder joint 06/21/17 - MAC #3, ETT #7.0, HiLo, Grade 1 View History of total right knee replacement Nausea and vomiting after administration of anesthetic agent Past Anesthesia History No Hx of Anesthesia Complications (with exception PONV ) and No Family Hx of Anesthesia Complications History of PONV No Hx of Motion Sickness and History of PONV Social History Smoking Status: Never smoker Do You Dip or Chew Tobacco: No Hx Alcohol Use: No Hx Substance Use: No substance use type: does not use Review of Systems - Unknown with snoring- sleeps alone Patient denies chest pain, shortness of breath, dyspnea on exertion, cough, wheezing, palpitations. No hx of seizures, stroke, IN. No hx of blood clots or blood transfusions Physical Exam Vital Signs VITALS BP 131/72 P 81 TEMP 97.9 SP02 95% RESP 16 Constitutional no acute distress ENMT Mouth: no TMJ clicking Thyromental Distance: > or= 3.5 Finger Breadths (3.5) Mallampati Class: III Broken molars Due to crown on 11/19/23 Neck + limited neck extension Respiratory normal respiratory effort; no respiratory distress Auscultation: lungs clear to auscultation bilaterally; no wheezes Cardiovascular Rate/Rhythm: regular rate and regular rhythm Heart Sounds: no murmur Vessels: no carotid bruit Musculoskeletal Spine: no pain with cervical ROM Extremities: extremities normal to inspection Psychiatric Orientation: alert Lab Results Anesthesia Preop Results Results Anesthesia Widget: WBC 6.28 K/ul (4.8-10.8) 11/06/23 Hgb 13.8 g/dl (12.0-16.0) 11/06/23 Hct 42.8 % (37.0-47.0) 11/06/23 Plt 241 K/uL (130-400) 11/06/23 Na 139 mmol/L (136-145) 11/06/23 K 4.1 mmol/L (3.5-5.1) 11/06/23 Cl 103 mmol/L (98-107) 11/06/23 CO2 30 mmol/L (21-32) 11/06/23 BUN 32 mg/dl (6-23) H 11/06/23 Creat 0.86 mg/dl (0.6-1.2) 11/06/23 Glucose Level 172 mg/dl (70-99(Fasting)) H 11/06/23 PT 9.8 Seconds (9.0-12.0) 11/06/23 PTT 28 Seconds (21-31) 11/06/23 INR 0.9 (0.9-1.1) 11/06/23 Blood Type O Positive 11/06/23 Antibody Screen NEGATIVE 11/06/23 Testing Electrocardiogram Date: 11/06/23 Findings: + NSR @ (77bpm) Left anterior fascicular block When compared EKG from September 25VCs are no longer present per cardio Chest X-Ray Date: 09/25/23 FINDINGS: Bilateral shoulder arthroplasties and thoracolumbar spine fusion are incidentally noted. There is a hiatal hernia. Cardiomediastinal silhouette is stable. There is no pneumothorax or pleural effusion. There is no consolidation or evidence for pulmonary edema. There has been no change in appearance of the chest. IMPRESSION: No acute cardiopulmonary findings. No significant change in appearance of the chest. Stress Test Date: 12/25/19 Type: exercise (Echo) Stress echo is negative for inducible ischemia. MPHR 170%. 5.9 METS achieved Stress EKG response showed no evidence of ischemia No arrhythmias. Normal HR and BP response to exercise. Average exercise tolerance for age. At rest, normal LV chamber size and wall thickness. Normal LV systolic function without regional wall motion abnormality, EF 55 to 60%. Grade 1 DD. Mild aortic valve sclerosis without stenosis. Mild TR.
--- NOTE | 2023-11-23 07:48 | History & Physical Report ---
Date of Service November 23, 2023 Assessment & Plan (1) Osteoarthritis of right hip: We will proceed with a right anterior total of arthroplasty. Postoperatively she will be started on aspirin for DVT prophylaxis and kept overnight in the hospital for postop medical management. She plans to use energy physical therapy upon discharge. History of Present Illness Chief Complaint: Osteoarthritis of the right hip. Primary Care Provider: Domingo Tellez DO Salazar is a pleasant 88-year-old female who has been dealing with chronic increasing right hip and groin pain. She has been seen by [facility]. X-rays have shown advanced arthritis of the right hip. After failing conservative treatment, she has elected proceed with a right anterior total of arthroplasty. Allergies Allergy/AdvReac Type Severity Reaction Status Date / Time Iodinated Contrast Media Allergy Severe DIFFICULTY Verified 10/27/23 09:33 BREATHING adhesive Allergy Intermediate tape = red Verified 10/27/23 09:33 skin ciprofloxacin Allergy Intermediate HIVES Verified 10/27/23 09:33 Penicillins Allergy Intermediate HIVES Verified 10/27/23 09:33 Sulfa (Sulfonamide Allergy Intermediate "SULFA Verified 10/27/23 09:33 Antibiotics) DRUGS" = HIVES tramadol Allergy Intermediate NAUSEA AND Verified 10/27/23 09:33 VOMITING Cipro Allergy Unknown HIVES Verified 06/21/17 08:43 atorvastatin AdvReac Severe SEVERE Verified 10/27/23 09:33 MUSCLE PAIN morphine AdvReac Severe SEVERE Verified 10/27/23 09:33 DELERIUM simvastatin AdvReac Severe SEVERE Verified 10/27/23 09:33 MUSCLE ACHES Home Medications Medication Instructions Recorded Confirmed Type multivitamin (Daily Multi-Vitamin 7 tab PO QAM 03/20/19 10/27/23 History tablet) lorazepam 0.5 mg tablet 0.5 mg PO BID PRN Anxiety #60 tabs 09/30/19 10/27/23 Rx Gianfranco-Plex 1 tab PO QPM 10/27/23 10/27/23 History amlodipine 10 mg tablet 10 mg PO QAM 10/27/23 10/27/23 History famotidine 20 mg tablet (Pepcid) 20 mg PO QAM 10/27/23 10/27/23 History polyethylene glycol 3350 17 17 g PO DAILY 10/27/23 10/27/23 History gram/dose oral powder (Miralax) Past Med/Surg History Medical History Paroxysmal atrial tachycardia Osteoarthritis Patient denies RA GERD (gastroesophageal reflux disease) well controlled and stable Hiatal hernia Large per 10/05/23 EGD (S) Shoulder fracture, left Since at least - "tip of bone in lt shoulder is fractured off, xrays at [facility], only has trouble w/this shoulder when laying on the left side" Anxiety "has whitecoat syndrome" HTN (hypertension) Labile per cardio records Hyperlipidemia 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" Lumbar stenosis with neurogenic claudication (10/09/14) Surgical History History of esophagogastroduodenoscopy (EGD) 10/05/23- mild Schatzki ring with dilation 10/05/23 [facility] History of total replacement of left shoulder joint History of phacoemulsification of cataract of both eyes with intraocular lens implantation History of colonoscopy History of hand surgery tendon sx bilat. thumbs History of hysterectomy History of total replacement of right shoulder joint 06/21/17 - MAC #3, ETT #7.0, HiLo, Grade 1 View History of total left knee replacement History of total right knee replacement History of back surgery multiple-under and lower back fused 10/09/13 - MAC #3, ETT #7.0, Grade 1 View 05/02/12 - MAC #3, ETT #7.0 Nausea and vomiting after administration of anesthetic agent Family History Mother Family history non-contributory Social History Smoking Status: Never smoker Second Hand Exposure: No; Do You Dip or Chew Tobacco: No; Tobacco Cessation Education Requested by Patient: No Hx Alcohol Use: No Hx Substance Use: No Preferred Language: Italian Communication Ability: Effective Mortgage Operations Manager Required: No Beliefs That Will Affect Care: None marital status: / Current Living Situation: Family Current Living Situation Comment: SON How many Children do You have: 3 Other Information That Helps Us Care for You: No Feels Safe at Home: Yes Safety Concerns: Feels Safe At This Time Assistive Devices: Glasses and Other Assistive Devices Comment: dental implants Review of Systems All systems reviewed & are unremarkable except as noted in HPI & below. Physical Exam On physical examination of the right hip, she has decreased range of motion. She has pain with forced internal/external rotation. All of her pain is in her groin.. Constitutional WD/WN, vitals as above Eyes PERRL, conjunctivae normal, anicteric sclerae ENMT external ear and nose normal, oropharynx normal Neck trachea midline, no thyromegaly Respiratory normal respiratory effort Cardiovascular RRR, no murmur, no edema Gastrointestinal (Abdomen) normal bowel sounds, soft, nontender, no hepatosplenomegaly Psychiatric A+Ox3, euthymic affect Results & Data Results & Data Laboratory Results . Diagnostic Findings X-rays of the right hip show advanced osteoarthritis with joint space narrowing, osteophyte formation, and [id number] articulation. PG Care Time/CCT Total # of Minutes Spent Total Time Spent with Patient: Total time spent is greater than 50% in coordination of care (as documented) at patient's floor/unit and/or counseling patient: Coding Level of Care Code None Diagnoses Osteoarthritis of right hip M16.11
[~2023-11-27 09:44] MED LIST changes: -ACETAMINOPHEN 500 MG TAB PO SCH; +BUPIVACAINE 0.5 % 5 MG/1 ML PF 10ML VIAL ONE; -FAMOTIDINE 20 MG TAB PO SCH; -GABAPENTIN 300 MG PO SCH; -LR 15ML/HR IV SCH; -METOCLOPRAMIDE HCL 10 MG TABLET PO SCH; -ROPIVACAINE 0.5% 5 MG/ML 30 ML VIAL ONE; -VANCOMYCIN HCL 1,000 MG in SODIUM CHLORIDE 0.9% 250 ML IV SCH; -VANCOMYCIN HCL 1,000 MG/270 ML BAG IV SCH; -dexAMETHasone 4 MG TAB PO SCH
[2023-11-27] MEDS ORDERED: LIDOCAINE 2% 2 ML VIAL/AMP(20MG/ML) INFIL ONE (09:55)
[2023-11-27] MEDS ORDERED: MIDAZOLAM HCL 1 MG/ML 2ML VIAL ONE (09:55)
[2023-11-27] MEDS ORDERED: PROPOFOL IV EMULSION 10 MG/ML 20 ML VIAL IV ONE (09:55)
[2023-11-27] MEDS ORDERED: fentaNYL citrate PF 100 MCG/2 ML VIAL ONE (09:56)
[2023-11-27] MEDS: LR 500ML BOLUS, THEN 15ML/HR IV SCH (10:26)
[2023-11-27] MEDS: LR 60ML/HR IV SCH (10:26)
[2023-11-27] MEDS: FAMOTIDINE 20 MG TAB PO SCH (10:27)
[2023-11-27] MEDS: GABAPENTIN 300 MG CAP PO SCH (10:27)
[2023-11-27] MEDS: dexAMETHasone**PF** 10 MG/ML VIAL IV SCH (10:27)
[2023-11-27] MEDS: ACETAMINOPHEN 500 MG TAB PO SCH ×2 (10:27→15:02)
--- NOTE | 2023-11-27 10:34 | History & Physical Bridge Note ---
Date of Service November 27, 2023 History & Physical Bridge Note I have examined the patient, reviewed the History & Physical and in the interval since the performance of the History & Physical I have noted the following changes of clinical significance: no changes noted
[2023-11-27] MEDS ORDERED: fentaNYL citrate PF 100 MCG/2 ML VIAL IV PRN (11:04)
[2023-11-27] MEDS ORDERED: ePHEDrine sulfate 50 MG/ML AMP IV PRN (11:04)
[2023-11-27] MEDS ORDERED: ATROPINE SULFATE 0.1 MG/ML 10ML SYR IV PRN (11:04)
[2023-11-27] MEDS ORDERED: PROMETHAZINE HCL 6.25 MG in SODIUM CHLORIDE 0.9% 50 ML IV PRN (11:04)
[2023-11-27] MEDS ORDERED: ONDANSETRON INJ 2 MG/ML 2 ML VIAL IV PRN ×2 (11:04→14:18)
[2023-11-27] MEDS ORDERED: HYDROmorphone INJ 2 MG/ML SYR/VIAL IV PRN (11:04)
[2023-11-27] MEDS: TRANEXAMIC ACID 1,000 MG **IV Pre-op IV SCH (11:35)
[2023-11-27] MEDS: ceFAZolin 2000MG 2,000 MG/15 ML SYR IV ONE (11:43)
[2023-11-27] MEDS ORDERED: PHENYLEPHRINE 100MCG/ML 10ML SYR IV ONE (12:05)
[2023-11-27] MEDS ORDERED: ePHEDrine sulfate 50 MG/5 ML SYR ONE (12:14)
[2023-11-27] MEDS: ROPIV 0.5% 246mg, Ketorolac 30mg, EPINEPHrine 0.5mg in NSS INFIL SCH (12:28)
[2023-11-27] MEDS: ORTHO JOINT ANESTHETIC ONE (12:29)
[2023-11-27] MEDS: TRANEXAMIC ACID 1,000 MG **IV Intra-op IV SCH (12:40)
--- NOTE | 2023-11-27 12:48 | Operative Report ---
PG Post Operative Report Pre & Post Diagnosis Operation Date: 11/27/23 11:20 Pre-Op Diagnosis: Degenerative Joint Disease Right Hip Post-Op Diagnosis: Degenerative Joint Disease Right Hip I identified the patient and participated in the time-out.: Yes Procedure Operation Date: 11/27/23 11:20 Actual Procedures p Right Anterior Total Hip Arthroplasty(Right) - Elpidio Pryor DO Surgeon Elpidio Pryor DO Mining And Quarrying Machinery Repairer Elpidio Vallecillo PA-C Estimated Blood Loss 150 Findings Consistent with Post-Op Diagnosis Specimens Right femoral head Description of Procedure Implants used I used a ZimmerBiomet total hip arthroplasty system with a size 0 standard offset Avenir Complete stem, a 48 mm G7 cup with a 25mm screw, an E1 polyet hylene liner, a 32 mm ceramic head with a 0 neck. Marie arrived at the hospital for the above procedure. She was seen in the preoperative holding area and the operative extremity was identified and signed. She was given a spinal anesthetic, a preoperative antibiotic, and TXA. She was then taken back to the operating room and laid on the table in the supine position. She was given basic sedation. The operative leg was secured to a Puristst leg positioner. The hip was then prepped and draped in sterile fashion. A timeout was done and the patient and the operative extremity was properly identified. An anterior approach was used. Dissection was taken down through the fascia and the tensor muscle belly was retracted laterally and the rectus was retracted medially. The circumflex vessels were identified and ligated. The capsule was then incised and tagged for later repair. The femoral neck was then cut and the femoral head was removed. The acetabulum was exposed. Time was spent doing a complete circumferential labral release. Sequential reaming of the acetabulum up to a size 47 reamer was done. Final reamings were done under fluoroscopy to ensure appropriate version. A Biomet 48 mm G7 cup was then impacted into place. A single 25 mm screw was placed. The E1 polyethylene liner was then snapped into place. Surrounding soft tissues were then injected with 100 cc of an orthopedic pain control cocktail. The proximal femur was then exposed. Sequential broaching up to a size 0 broach was done. Off that broach a size 32 head with a 0 neck was trialed. The hip was reduced and fluoroscopic images showed anatomic alignment of the implants in acceptable length. The broach was removed. The final size 0 standard offset Avenir Complete stem was then impacted into place. A ceramic 32 mm head with a 0 neck was then impacted onto the stem and the hip was reduced. Final fluoroscopic images showed anatomic alignment of the hip. The capsule was then closed with #1 Vicryl suture. A dilute betadyne lavage was then done for 3 minutes. The joint was then irrigated with normal saline solution. The fascia was closed with #1 PDS suture. Skin was closed with 2-0 Vicryl, adleso, and a Silverlon dressing. She was then transferred to a hospital bed and taken to the post anesthesia care unit in stable condition. She tolerated the procedure well. Elpidio Vallecillo PA-C, was present for the entire procedure. He was critical for patient positioning, prepping, draping, retraction exposure, wound closure and application of sterile dressing. I attest to the content of the Intraoperative Record and any orders documented therein. Any exceptions are noted below.
--- OUTSIDE RECORDS SUMMARY | 2023-11-27 12:59 | External Medical Summary | Summary of Care ---
Author Name Unknown Organization [facility] Address [address] [facility] [place] [address] Phone [phone] Care Team Providers Care Hot Tar Roofer Helper Name Role Phone Domingo Tellez DO Primary Care Provider Reason for Visit * Reason Onset Date Comments Advice 08/21/2023 Order for swab Encounter Details Date Type Department Care Team (Late st Contact Info) Description 08/21/2023 Telephone Family Practice [facility] [address] [facility] [place] [address] Domingo [facility]elle[facility] DO [address] [facility] [address] Advice (Order for swab) Allergies Active Allergy Reactions Criticality Noted Date Comments Ciprofloxacin Hcl 05/23/2016 Sensitivity ONLY-NOT allergic Iodinated Contrast Media Tachycardia 05/23/2016 Atorvastatin Muscle pain 05/23/2016 Penicillins 03/01/2006 rash Sulfa Antibiotics 03/01/2006 rash Tramadol Neuro complications (Please comment) 05/23/2016 dizziness Simvastatin Neuro complications (Please comment) 05/23/2016 Severe headache documented as of this encounter (statuses as of 11/20/2023) Medications Medication Sig Dispensed Refills Start Date End Date Status MULTIVITAMIN PO TABS one daily 0 03/01/2006 Active CALCIUM 500 MG PO TABS one daily 0 03/01/2006 Active VITAMIN C 1000 MG PO TABS one daily 0 05/02/2006 Active FISH OIL 500 MG PO CAPS 2 capsules daily 0 05/02/2006 Active Acetaminophen 325 MG Oral CapsuleIndication s:take 1 to 2 tablets every 4 hours as needed Take by mouth. Indications: take 1 to 2 tablets every 4 hours as needed 0 Active Fe [id number] F-FA (EARNEST-PLEX HEMATINIC) 115-1 MG TABS Take by mouth. 85 mg of ana cristina plex 0 Active LORazepam 0.5 MG Oral Tablet (Ativan)Indicatio ns:JAMIL (generalized anxiety disorder) Take 1 tablet by mouth twice daily as needed for anxiety 60 Tablet 3 07/24/2023 Active amLODIPine Besylate 10 MG Oral Tablet (Norvasc)Indicati ons:HTN, goal below 140/90 TAKE 1 TABLET BY MOUTH IN THE MORNING 90 Tablet 3 07/25/2023 Active Aspirin 81 MG Tablet Take 1 Tablet by mouth in the morning. 0 09/29/2023 Discontinued (Patient preference/d iscontinuati on) Erythromycin 5 MG/GM Ophthalmic Ointment Apply 0.25 inch ribbon of ointment to both upper eyelid incisions 4 times daily for 2 weeks then apply at bedtime for 4 weeks 3.5 g 3 11/23/2022 09/29/2023 Discontinued (Medication List Clean Up) documented as of this encounter (statuses as of 11/20/2023) Active Problems Problem Noted Date Diagnosed Date GERD (gastroesophageal reflux disease) Osteoarthritis Hip bursitis, left HTN, goal below 150/90 JAMIL (generalized anxiety disorder) documented as of this encounter (statuses as of 11/20/2023) Resolved Problems Problem Noted Date Diagnosed Date Resolved Date PAT (paroxysmal atrial tachycardia) 01/11/2021 09/27/2022 Kidney disease, chronic, sta ge III (GFR 30-59 ml/min) 02/10/2020 07/10/2020 Overview: Per CKD protocol documented as of this encounter (statuses as of 11/20/2023) Social History Tobacco Use Types Packs/Day Years Used Date Smoking Tobacco: Never Smokeless Tobacco: Never Alcohol Use Standard Drinks/Week Comments Not Currently 0 (1 standard drink = 0.6 oz pur e alcohol) PHQ-2 Answer Date Recorded PHQ Adult Total Score 0 06/14/2022 Hunger Vital Sign Answer Date Recorded Worried About Running Out of Food in the Last Ye ar Never true 01/28/2020 Ran Out of Food in the Last Year Never true 01/28/2020 Sex and Gender Information Value Date Recorded Sex Assigned at Female 01/28/2020 2:58 PM EDT Gender Identity Female 01/28/2020 2:58 PM EDT Sexual Orientation Straight 01/28/2020 2: 58 PM EDT Job Start Date Occupation Industry Not on file Not on file Not on file documented as of this encounter Miscellaneous Notes * Telephone Encounter - Gisela Gallo LPN - 08/21/2023 2:58 PM EST Patient returned call. Informed of message. Verbalized understanding. Offered appt at [facility] tomorrow, she declined she has another appt tomorrow. Pt states she willgo to . * Telephone Encounter - Arslan Rollins OSA - 08/21/2023 2:43 PM EST LMhome# asking pt to return call to schedule appt. * Telephone Encounter - Olivia Najera LPN - 08/21/2023 2:25 PM EST Please call and schedule pt for an appt with any available provider. * Telephone Encounter - Lizz Stark OSA - 08/21/2023 12:39 PM EST No Appointments Available Patient declined appointments?: No What Visit Type is needed? Acute If Acute Visit Type is needed, were surrounding clinics offered to patient (Yes/No)? Yes Was patient offered appointments with other available providers (Yes/No)? Yes See Call Details? (Yes or No): Yes Just looking to come in to be seen or have swab done to ck for Covid or RSV Please call her if can order the swabs to be done for nurse to do it today. Call back to Marie to let her know. documented in this encounter Plan of Treatment Upcoming Encounters Date Type Department Care Team (Late st Contact Info) Description 01/16/2024 9:30 AM EDT Office Visit Gastroenterology, [facility] [address] [place] [address] Inna Hancock CRNP [address] [place] [address] 02/26/2024 10:00 AM EDT Office Visit Family Practice [facility] [address] [facility] [place] [address] Domingo Tellez DO [address] [facility] [place] [address] Scheduled Procedures Name Priority Associated Diagnoses Date/Ti me COLONOSCOPY FLEXIBLE PROXIMA L DIAGNOSTIC Recall History of colonic polyps Health Maintenance Due Date Last Done Comments DTaP,Tdap,and Td Vaccines (1 - Tdap) 1954 Zoster Vaccines (1 of 2) 1987 Pneumococcal Vaccine: 65+ Years (1 of 1 - PCV) 2002 COVID-19 Vaccine ( - 2022-2 4 season) 2023 Influenza Vaccine (FLU shot) (#1) 2023 Depression Screening 06/14/2023 06/14/2022 COLONOSCOPY-EVERY 5 YRS AGES 18-100 04/13/2025 04/13/2020, 04/13/2020, 03/21/2008 Albumin/Creatinine Ratio 06/15/2025 022, 05/13/2020, 03/23/2020 DXA Scan 11/17/2026 11/18/2019 GARDASIL-HPV IMMUNIZATION SERIES Aged Out No longer eligible b ased on patient's age to complete this topic Hepatitis B Aged Out No longer eligi ble based on patient's age to complete this topic MENINGOCOCCAL (MENACTRA/MENVEO) Aged Out No longer eligible b ased on patient's age to complete this topic documented as of this encounter Medical Devices Implanted Type Area Audit Manager Device Identifier Shelf Expiration Date Model / Serial / Lot Lens Intraoc 24.0 - [id number] Implanted:Qty: 1 on 06/07/2016 by Juan Joe MD at OR [facility] Left: Eye [employer] LOMB 09/03/2018 [id number] / [id number] / [id number] Lens Intraoc 22.5 - [id number] Implanted:Qty: 1 on 06/21/2016 by Juan Joe MD at OR [facility] Right: Eye [employer]USCH [employer] LOMB 08/21/2018 [id number] / [id number] / documented as of this encounter Additional Health Concerns Infection Onset Date Last Indicated Resolved Time Influenza (seasonal) 08/21/2023 08/21/2023 024 12:21 AM EST documented as of this encounter Advance Directives Latest Code Status on File Code Status Date Activated Date Inactivated Comments Full Code 06/21/2016 11:14 AM 06/21/2016 6:40 PM Th is order reflects the patients wishes and were consensually agreed upon. Code Status History Code Status Date Activated Date Inactivated Comments Full Code 06/07/2016 8:42 AM 06/07/2016 3:20 PM This order reflects the patients wishes and were consensually agreed upon. Care Teams Hot Tar Roofer Helper Relationship Specialty Start Date End Date Domingo Tellez DO [address] [place] [address] PCP - General Family Medicine 08/20/19 documented as of this encounter
--- NOTE | 2023-11-27 13:13 | Anesthesiology Progress Note ---
Date of Service November 27, 2023 Anesthesia Post Procedure Vital Signs Vital Signs: Temp Pulse Resp BP Pulse Ox O2 Del Method 11/27/23 10:12 36.6 C 101 H 18 186/85 H 95 Room Air Transfer of Care Handoff Completed per policy Notes Mental Status: alert / awake / arousable and participated in evaluation Patient Amnestic to Procedure: Yes Nausea / Vomiting: adequately controlled Pain: adequately controlled Airway Patency, RR, SpO2: stable & adequate BP & HR: stable & adequate Hydration State: stable & adequate Neuraxial Anesthesia: was administered and sensory block is resolving Anesthetic Complications: no major complications apparent and Pt Satisfied with anesthetic care
[2023-11-27] MEDS ORDERED: NALOXONE HCL 0.4 MG/1 ML VIAL/CARP IV PRN (14:18)
[2023-11-27] MEDS ORDERED: oxyCODONE HCL IR 5 MG TAB (IMMEDIATE RELEASE) PO PRN (14:18)
[2023-11-27] MEDS ORDERED: HYDROmorphone INJ 0.5 MG/0.5 ML SYR IV PRN (14:18)
[2023-11-27] MEDS ORDERED: METOCLOPRAMIDE HCL INJ 5 MG/ML 2 ML VIAL IV PRN (14:18)
[2023-11-27] MEDS ORDERED: MAGNESIUM HYDROXIDE SUSP 30 ML UDC PO PRN (14:18)
[2023-11-27] MEDS ORDERED: bisacodyL 10 MG SUPP PR PRN (14:18)
[2023-11-27] MEDS ORDERED: traMADol HCL 50 MG TABLET PO PRN (14:18)
--- NOTE | 2023-11-27 14:25 | Fluoroscopy Report ---
FL hip RT 1V CLINICAL HISTORY: RIGHT ANTERIOR HIP COMPARISON STUDY: Right hip radiographs October 24, 2023. FLUOROSCOPY TIME: 18 seconds. Ka, r: 2.9385 mGy FLUOROSCOPIC IMAGES: 1 FINDINGS: Fluoroscopy was provided during total anterior right hip arthroplasty. The hardware is inta ct. Alignment is anatomic. There is no fracture or unexpected radiopaque foreign body. IMPRESSION: Fluoroscopy provided during total anterior right hip arthroplasty. ACT 112: Negative or not required by law. Electronically signed by: Hao Guevara M.D. 11/27/2023 2:24 PM
--- NOTE | 2023-11-27 14:26 | XRay Report ---
XR hip 1V RT w pelvis CLINICAL HISTORY: Postoperative evaluation. COMPARISON: Right hip radiographs October 24, 2023. FINDINGS: Alignment of the right hip arthroplasty is anatomic. There is no periprosthetic fracture o r unexpected radiopaque foreign body. There are skin adelso. Postoperative findings within the spine are incidentally noted. IMPRESSION: Expected findings following total right hip arthroplasty. ACT 112: Negative or not required by law. Electronically signed by: Hao Guevara M.D. 11/27/2023 2:25 PM
[2023-11-27] MEDS: SODIUM CHLORIDE 0.9% 1,000 ML IV SCH (14:36)
[2023-11-27] MEDS: KETOROLAC TROMETHAMINE 15 MG/ML VIAL IV SCH (15:03)
[2023-11-27] MEDS: ceFAZolin 1000MG 1,000 MG/7.5 ML SYR IV SCH (17:59)
[2023-11-27] MEDS: DOCUSATE SODIUM 100 MG CAP PO SCH (19:52)
[2023-11-27] MEDS: ASPIRIN 81 MG ECTAB PO SCH (19:52)
[2023-11-27] MEDS: SENNA 8.6 MG TAB PO SCH (19:53)
[2023-11-27] MEDS: ALLERGY Noted to ORDERED Medication SCH (22:11)
[2023-11-28] MEDS: LORazepam 0.5 MG TAB PO PRN (02:19)
[2023-11-28] MEDS: amLODIPine BESYLATE 5 MG TAB PO SCH (08:05)
[2023-11-28] MEDS: dexAMETHasone 4 MG TAB PO SCH (08:05)
[2023-11-28] MEDS: MULTIVITAMIN TAB PO SCH (08:06)
--- NOTE | 2023-11-28 10:32 | Orthopedic Progress Note ---
Date of Service November 28, 2023 Assessment & Plan (1) Status post right hip replacement: Overall, she is doing quite well today with good pain control to the right hip. She has participated well with physical therapy this morning work on ambulation and range of motion exercises. She was started on aspirin for DVT prophylaxis. She can be discharged home later today pending physical therapy evaluation. She will follow-up with orthopedics in 2 weeks for postoperative management. Subjective . Marie was seen and evaluated this morning resting comfortably in no apparent distress. She notes that her pain is well-controlled to the right hip. She has been up and out of bed with no significant issues. She has worked with physical therapy and was able to do ambulation and range of motion exercises without much discomfort or issues. She denies any other concerns today. Review of Systems All systems reviewed & are unremarkable except as noted in HPI & below. Physical Exam . On physical examination of the right hip, her dressings are clean, dry, intact. Her leg is out in full extension. She has active plantarflexion dorsiflexion of the right ankle. +2 DP and PT pulses. Less than 2-second capillary refill. Normal sensation. Neurovascular intact. Results & Data Results & Data Laboratory Results . Diagnostic Findings . Postoperative x-rays of the right hip show prosthesis to be in anatomical alignment with no signs of fracture complication or loosening. PG Care Time/CCT Total # of Minutes Spent Total Time Spent with Patient: Total time spent is greater than 50% in coordination of care (as documented) at patient's floor/unit and/or counseling patient: Coding Level of Care Code 32589 Post Operative Follow-Up Diagnoses Status post right hip replacement Z96.641
--- NOTE | 2023-11-28 10:34 | Discharge Summary ---
Date of Service November 28, 2023 Admission HPI (Per Admitting) Marie is a pleasant 88-year-old female who has been dealing with chronic increasing right hip and groin pain. She has been seen by [facility]. X-rays have shown advanced arthritis of the right hip. After failing conservative treatment, she has elected proceed with a right anterior total of arthroplasty. Admission Exam (Per Admitting) On physical examination of the right hip, she has decreased range of motion. She has pain with forced internal/external rotation. All of her pain is in her groin.. Principal Diagnosis Same as "Discharge Diagnosis" noted below under Discharge Instructions. Discharge Exam . On physical examination of the right hip, her dressings are clean, dry, intact. Her leg is out in full extension. She has active plantarflexion dorsiflexion of the right ankle. +2 DP and PT pulses. Less than 2-second capillary refill. Normal sensation. Neurovascular intact. Discharge Data Procedures Performed Operation Date: 11/27/23 11:20 Actual Procedures p Right Anterior Total Hip Arthroplasty(Right) - Elpidio Pryor DO Ordered Studies 11/27/23 11:20 FL hip RT 1V Routine Hospital Course (1) Status post right hip replacement: On November 27, 2023 Marie arrived at [facility] and underwent a right anterior total hip arthroplasty performed by Dr. Pryor with no complications. She had a spinal anesthetic. Postoperatively, she was started on aspirin for DVT prophylaxis and transferred to the general orthopedic floor in stable condition. Her hospital course was uneventful. On postoperative day #1, her vital signs were stable and her pain was well-controlled. She participated well with physical therapy working on ambulation and range of motion exercises. She was then discharged home in stable condition. She will follow-up with orthopedics in 2 weeks for postoperative management. PG Care Time/CCT Total # of Minutes Spent Total Time Spent with Patient: Total time spent is greater than 50% in coordination of care (as documented) at patient's floor/unit and/or counseling patient: Discharge Plan Discharge Items Patient Disposition: Home - Home Health Services Reason For Visit: Degenerative Joint Disease Right Hip Discharge Diagnosis: Same Activity: Per Instructions section Non-emergency contact: Surgeon Call non-emergency contact if: your temperature is above 101.5, your wound has increased redness, your wound has increased drainage and your wound pain has increased Follow-up/Referrals: Domingo Tellez, [Primary Care Provider] - Diet: Regular Addtl Attending Provider Instructions: Activity and Therapy Recommendations: * If you are using [facility] then therapy will be provided at your home until they feel you have accomplished all of your goals. * If you are using [facility] then Physical Therapy will be provided until they feel you are ready to start Outpatient Physical Therapy. * If you are not using home therapy then Outpatient Physical Therapy should start about 3-5 days from your day of surgery. Therapy will last about 6-10 weeks * You were shown a series of exercises in the hospital. Do these exercises three times each day including the exercises you were shown in physical therapy. * Get up and walk several times each day.~ For the first four weeks, try not to stand or walk for more than one hour at a time. If you do stand or walk for more than one hour, you will not hurt anything, but your leg will likely swell.~~ * As you feel comfortable, you may change from the walker or crutches to a cane and~then to independent walking. Medications: * Narcotic You will likely be sent home from the hospital with a prescription for the narcotic pain medication that worked best throughout your stay. * Cefadroxil -take the antibiotic twice a day for 10 days to help prevent infection. * Aspirin Most patients will be required to take Aspirin 81mg twice a day for 6 weeks after surgery. This is obtained [id number] and a prescription is not necessary. * Other medications may be prescribed for specific circumstances. If you have any questions, please call the office at . * Resume previous home medications unless otherwise instructed TEDs/Elastic Stockings: The white elastic stockings help limit swelling and prevent blood clots from forming in your legs. The more you wear them, the more they work. Wear them for six weeks. Dressing Care: Leave the Silverlon dressing in place for 7 days. After 7 days you may remove the dressing. If the incision is not draining then you may leave the adelso open to air. If there is a little bit of drainage or if the adelso are getting stuck on your clothing then cover the incision with a dry dressing. The adelso will be removed at your 2 week follow-up appointment. Showering: You may shower with the Silverlon dressing in place. Do not let the shower spray hit the dressing directly. Pat the Silverlon dressing dry. If the dressing becomes wet underneath, then simply remove the dressing. Keep the incision dry until you are 7 days out from the day of surgery. After 7 days you may remove the Silverlon dressing and shower with the adelso exposed. Let soapy water run over the adelso and pat them dry. Do not scrub or soak the incision. Things To Watch For: * Drainage from the incision site that occurs more than one week after your surgery. * Increased redness at the incision site. * Fever above 102 degrees Fahrenheit. * Unusual chest pain or shortness of breath. * Call [facility] at with any of the above pro blems Follow-Up Visit: Follow-up with Dr. Pryor's PA (Elpidio Vallecillo) 2-3 weeks after your day of surgery. He will remove your adelso and answer any questions. If you have any additional questions or concerns, Dr Pryor is usually in the office at the same time and will be available An appointment was probably scheduled when you signed-up for surgery in the office. If you have any questions call Office Instructions: More detailed instructions as well as Frequently Asked Questions were provided in a folder by our office when you signed-up for surgery. Please review these instructions when you get home. If you have any further questions or concerns, please feel free to call the office at [phone] Pending Studies at Discharge: No Stand-Alone Forms: [facility], Pain - Opioid Pain Management, Smoking Cessation Medications and DC Order Prescriptions: New aspirin 81 mg Tablet,Delayed Release (Dr/Ec) 81 mg PO BID 42 Days Qty: 0 0RF oxycodone 5 mg Tablet 5 mg PO Q6 PRN (Reason: pain) Qty: 30 0RF cefadroxil 500 mg capsule 500 mg PO BID 10 Days Qty: 20 0RF Continued lorazepam 0.5 mg tablet 0.5 mg PO BID PRN (Reason: Anxiety) Qty: 60 0RF multivitamin [Daily Multi-Vitamin] tablet 7 tab PO QAM amlodipine 10 mg tablet 10 mg PO QAM Gianfranco-Plex 1 tab PO QPM Patient Comments: w/lunch polyethylene glycol 3350 [Miralax] 17 gram/dose Powder 17 g PO DAILY omega-3 fatty acids Capsule 2 cap PO DAILY Krames/Other Patient Handouts: After Hip Replacement: Home Safety Admission Data Admit Date/Time: 11/27/23 12:22 Attending Provider: Elpidio Pryor Admit Provider: Elpidio Pryor Primary Care Provider: Domingo Tellez Other Interventions: Discharge Summary Assessment (RN) Last Done: 11/28/23 09:02
== END 2023-11-28 10:49 | disposition home health service (06) ==
LOC: 3W 09:44 → ASU 09:44

== ENCOUNTER 2024-03-18 09:53 | Inpatient (IN) ==
--- NOTE | 2024-03-13 08:38 | Anesthesiology Consultation ---
Date of Service March 13, 2024 Assessment & Plan Chart Review Chart Review: Acceptable Risk for Surgery and Patient NOT seen in Pre Admission Testing Consults Requested none History Surgery Operation Date: 03/18/24 13:40 Proposed Procedures p Partial Revision Right Anterior Total Hip Arthroplasty - Elpidio Pryor DO Height/Weight Height: 4 ft 10 in Weight: 58.513 kg Allergies Allergy/AdvReac Type Severity Reaction Status Date / Time Iodinated Contrast Media Allergy Severe DIFFICULTY Verified 03/13/24 07:34 BREATHING adhesive Allergy Intermediate tape = red Verified 03/13/24 07:34 skin ciprofloxacin Allergy Intermediate HIVES Verified 03/13/24 07:34 Penicillins Allergy Intermediate HIVES Verified 03/13/24 07:34 Sulfa (Sulfonamide Allergy Intermediate "SULFA Verified 03/13/24 07:34 Antibiotics) DRUGS" = HIVES tramadol Allergy Intermediate NAUSEA AND Verified 03/13/24 07:34 VOMITING atorvastatin AdvReac Severe SEVERE Verified 03/13/24 07:34 MUSCLE PAIN morphine AdvReac Severe SEVERE Verified 03/13/24 07:34 DELERIUM simvastatin AdvReac Severe SEVERE Verified 03/13/24 07:34 MUSCLE ACHES Medications Home Medications Medication Instructions Recorded Confirmed Last Taken multivitamin (Daily Multi-Vitamin 7 tab PO QAM 03/20/19 03/13/24 11/26/23 06:00 tablet) lorazepam 0.5 mg tablet 0.5 mg PO BID PRN Anxiety #60 tabs 09/30/19 03/13/24 11/27/23 07:00 Gianfranco-Plex 1 tab PO QPM 10/27/23 03/13/24 11/17/23 amlodipine 10 mg tablet 10 mg PO QAM 10/27/23 03/13/24 11/27/23 07:00 polyethylene glycol 3350 17 17 g PO DAILY 10/27/23 03/13/24 11/26/23 07:00 gram/dose oral powder (Miralax) omega-3 fatty acids 2 cap PO QAM 11/27/23 03/13/24 11/20/23 oxycodone 5 mg tablet 5 mg PO Q6H PRN pain 03/13/24 03/13/24 Unknown Past Medical History Medical History Osteoarthritis of right hip Paroxysmal atrial tachycardia Osteoarthritis Patient denies RA GERD (gastroesophageal reflux disease) well controlled and stable, no current meds Hiatal hernia Large per 10/05/23 EGD ([facility]) Shoulder fracture, left Since at least - "tip of bone in lt shoulder is fractured off, xrays at [facility], only has trouble w/this shoulder when laying on the left side" Anxiety "has whitecoat syndrome" HTN (hypertension) Labile per cardio records 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" Lumbar stenosis with neurogenic claudication (10/09/14) Past Family History Family History Mother Family history non-contributory Past Surgical History Surgical History History of total right hip arthroplasty 11/2023 History of esophagogastroduodenoscopy ([facility]) 10/05/23- mild Schatzki ring with dilation 10/05/23 [facility] History of total replacement of left shoulder joint History of phacoemulsification of cataract of both eyes with intraocular lens implantation History of colonoscopy History of hand surgery tendon sx bilat. thumbs History of hysterectomy History of total replacement of right shoulder joint 06/21/17 - MAC #3, ETT #7.0, HiLo, Grade 1 View History of total left knee replacement History of total right knee replacement History of back surgery multiple-under and lower back fused 10/09/13 - MAC #3, ETT #7.0, Grade 1 View 05/02/12 - MAC #3, ETT #7.0 Nausea and vomiting after administration of anesthetic agent Social History Smoking Status: Never smoker Do You Dip or Chew Tobacco: No Hx Alcohol Use: No Hx Substance Use: No substance use type: does not use Testing Laboratory Results Laboratory Tests 02/04/19 02/11/19 03/12/24 09:50 12:18 14:13 WBC 6.99 Hgb 13.9 Hct 42.5 Plt Count 250 PT 9.6 INR 0.9 APTT 27 Sodium 137 Potassium 4.1 Chloride 101 Carbon Dioxide BUN Creatinine 0.78 Glucose 112 H Hemoglobin A1c 6.1 H TSH 0.704 03/12/24 14:13 WBC Hgb Hct Plt Count PT INR APTT Sodium Potassium Chloride Carbon Dioxide 30 BUN 26 H Creatinine Glucose Hemoglobin A1c TSH Electrocardiogram Date: 11/06/23 Normal sinus rhythm Left anterior fascicular block Abnormal ECG When compared with ECG of 25-SEP-2023 08:31, Premature atrial complexes are no longer Present Confirmed by Alex Ardon ([id number]) on 11/06/2023 5:00:23 PM Echocardiogram Date: 12/25/19 EF: 55-60 LV Function: normal
--- NOTE | 2024-03-18 10:08 | History & Physical Bridge Note ---
Date of Service March 18, 2024 History & Physical Bridge Note I have examined the patient, reviewed the History & Physical and in the interval since the performance of the History & Physical I have noted the following changes of clinical significance: no changes noted
[2024-03-18] MEDS: ACETAMINOPHEN 500 MG TAB PO SCH ×2 (10:29→16:06)
[2024-03-18] MEDS: GABAPENTIN 300 MG CAP PO SCH (10:29)
[2024-03-18] MEDS: FAMOTIDINE 20 MG TAB PO SCH (10:30)
[2024-03-18] MEDS: LR 60ML/HR IV SCH (10:30)
[2024-03-18] MEDS: LR 500ML BOLUS, THEN 15ML/HR IV SCH (10:50)
[2024-03-18] MEDS: dexAMETHasone**PF** 10 MG/ML VIAL IV SCH (11:05)
[2024-03-18] MEDS ORDERED: fentaNYL citrate PF 100 MCG/2 ML VIAL IV PRN ×2 (11:25→12:11)
[2024-03-18] MEDS ORDERED: ePHEDrine sulfate 50 MG/ML AMP IV PRN ×2 (11:25→12:11)
[2024-03-18] MEDS ORDERED: ONDANSETRON INJ 2 MG/ML 2 ML VIAL IV PRN ×2 (11:25→12:11)
[2024-03-18] MEDS ORDERED: ATROPINE SULFATE 0.1 MG/ML 10ML SYR IV PRN ×2 (11:25→12:11)
[2024-03-18] MEDS ORDERED: fentaNYL citrate PF 100 MCG/2 ML VIAL ONE (11:45)
[2024-03-18] MEDS: TRANEXAMIC ACID 1,000 MG **IV Pre-op IV SCH (11:51)
[2024-03-18] MEDS ORDERED: LIDOCAINE 2% 2 ML VIAL/AMP(20MG/ML) INFIL ONE (11:55)
[2024-03-18] MEDS ORDERED: ONDANSETRON INJ 2 MG/ML 2 ML VIAL ONE (11:55)
[2024-03-18] MEDS ORDERED: PROPOFOL IV EMULSION 10 MG/ML 20 ML VIAL IV ONE (11:55)
[2024-03-18] MEDS: ceFAZolin 2000MG 2,000 MG/15 ML SYR IV SCH ×2 (12:08→20:10)
[2024-03-18] MEDS ORDERED: ePHEDrine sulfate 50 MG/5 ML SYR ONE (12:23)
[2024-03-18] MEDS: ROPIV 0.5% 246mg, Ketorolac 30mg, EPINEPHrine 0.5mg in NSS INFIL SCH (12:37)
[2024-03-18] MEDS: ORTHO JOINT ANESTHETIC ONE (12:38)
[2024-03-18] MEDS ORDERED: PHENYLEPHRINE 100MCG/ML 10ML SYR IV ONE (12:39)
[2024-03-18] MEDS: TRANEXAMIC ACID 1,000 MG **IV Intra-op IV SCH (12:51)
--- NOTE | 2024-03-18 13:04 | Operative Report ---
PG Post Operative Report Pre & Post Diagnosis Operation Date: 03/18/24 12:00 Pre-Op Diagnosis: Instability Right Total Hip Post-Op Diagnosis: Instability Right Total Hip I identified the patient and participated in the time-out.: Yes Procedure Operation Date: 03/18/24 12:00 Actual Procedures p Partial Revision Right Anterior Total Hip Arthroplasty(Right) - Elpidio Pryor DO Surgeon Elpidio Pryor DO Machine I Engraver Elpidio Vallecillo PA-C Estimated Blood Loss 100 Findings Consistent with Post-Op Diagnosis Specimens None Description of Procedure On March 18, 2024 Marie arrived at [facility] for the above procedure. She was seen in the preoperative holding area and the operative extremity identified and signed. She was given a preoperative antibiotic and a spinal anesthetic. She was taken by the operative room and laid on table supine position. She was put under basic sedation. The right hip was brought out to a purist leg positioner. The right hip was then prepped and draped in sterile fashion. A timeout was done. The patient and the operative extremity was properly identified. The previous anterior approach was used. Dissection was taken down through the fascia. The previous surgical plane was identified. Dissection was taken down to the capsule. The capsule was then incised and tagged for later repair. The femoral head was identified. A bone hook was placed and lateral traction was pulled on to the proximal femur. The femoral head was unstable and easily dislocated. The femoral head was then removed. The acetabulum and the femoral component were well-seated. The acetabulum appear to be in good position. A trial 32 mm head with a +7 neck was placed. The hip was then reduced. Fluo roscopic images showed good alignment of the hip. Lateral traction was pulled with a bone hook and the hip felt to be very stable. The hip was then dislocated. The trial was removed and the final size 32 mm ceramic head with a +7 neck was then impacted into place. The hip was then reduced. Traction was once again applied and the hip felt to be stable. A final x-ray showed anatomic alignment of the hip. The wound was then irrigated. The capsule was closed with #1 Vicryl. The deep fascia was closed with #1 PDS suture. Deep fat layer was closed with 2-0 Vicryl. Skin was closed with 2-0 Vicryl and adelso. She was then placed in a Silverlon dressing. She was then transferred to a hospital bed and taken to the postanesthesia care unit in stable condition. She tolerated the procedure well. Elpidio Vallecillo PA-C, was present for the entire procedure. He was critical for patient positioning, prepping, draping, retraction exposure, wound closure and application of sterile dressing. I attest to the content of the Intraoperative Record and any orders documented therein. Any exceptions are noted below.
--- NOTE | 2024-03-18 13:19 | Fluoroscopy Report ---
FL hip RT 1V CLINICAL HISTORY: RIGHT ANTERIOR HIP REVISION TECHNIQUE: 2 views were obtained with the C-arm in the OR with the above procedure. Total fluoroscopy time was 7.4 seconds. Radiation dose was 0.89 mGy. Comparison: Comparison is made to hip radiographs 03/12/2024 FINDINGS/IMPRESSION: Intraoperative images were obtained of right hip arthroplasty revision. Please correlate with intraoperative fluoroscopy and operative report. ACT 112: Negative or not required by law. Electronically signed by: John Lawson M.D. 03/18/2024 1:18 PM
[2024-03-18] MEDS ORDERED: oxyCODONE HCL IR 5 MG TAB (IMMEDIATE RELEASE) PO PRN (14:38)
[2024-03-18] MEDS ORDERED: MAGNESIUM HYDROXIDE SUSP 30 ML UDC PO PRN (14:38)
[2024-03-18] MEDS ORDERED: bisacodyL 10 MG SUPP PR PRN (14:38)
[2024-03-18] MEDS ORDERED: NALOXONE HCL 0.4 MG/1 ML VIAL/CARP IV PRN (14:38)
[2024-03-18] MEDS ORDERED: HYDROmorphone INJ 0.5 MG/0.5 ML SYR IV PRN (14:38)
--- NOTE | 2024-03-18 15:31 | Anesthesiology Progress Note ---
Date of Service March 18, 2024 Anesthesia Post Procedure Vital Signs Vital Signs: Temp Pulse Pulse Resp BP BP Pulse Ox 03/18/24 14:45 36.5 C 86 18 123/67 92 03/18/24 14:15 36.4 C L 84 16 115/71 96 03/18/24 14:05 86 12 118/64 96 03/18/24 13:55 36.4 C L 87 16 118/57 L 96 03/18/24 13:45 85 12 119/58 L 99 03/18/24 13:35 86 14 104/47 L 96 03/18/24 13:25 84 14 107/51 L 98 03/18/24 13:19 36.0 C L 83 16 97/50 L 95 03/18/24 10:18 36.8 C 99 H 20 155/99 H 98 O2 Del Method O2 Flow Rate 03/18/24 14:45 Room Air 03/18/24 14:15 Room Air 03/18/24 14:05 Room Air 03/18/24 13:55 Room Air 03/18/24 13:45 Oxymask 4 03/18/24 13:35 Oxymask 4 03/18/24 13:25 Oxymask 4 03/18/24 13:19 Oxymask 6 03/18/24 10:18 Room Air Transfer of Care Handoff Completed per policy Notes Mental Status: alert / awake / arousable and participated in evaluation Nausea / Vomiting: adequately controlled Pain: adequately controlled Airway Patency, RR, SpO2: stable & adequate BP & HR: stable & adequate Hydration State: stable & adequate Anesthetic Complications: no major complications apparent and Pt Satisfied with anesthetic care
--- NOTE | 2024-03-18 15:50 | XRay Report ---
SINGLE VIEW PELVIS; SINGLE VIEW RIGHT HIP CLINICAL HISTORY: Postoperative examination. FINDINGS: An AP portable view of the hips and pelvis with a crosstable lateral portable view of the r ight hip are obtained compared to study dated 03/12/2024. A bipolar right hip arthroplasty is in near-a natomic alignment. A single cortical lag screw transfixes the acetabular cup. No acute fracture is id entified. There are expected postoperative changes overlying the right hip including skin clips, subc utaneous gas, and soft tissue swelling. Mild to moderate osteoarthritic change is seen in the left hi p. Sclerotic change is noted in the sacroiliac joints. Phleboliths project over the pelvis and scrotu m. There is atherosclerotic calcification of the femoral arteries. IMPRESSION: Expected postoperative findings status post right hip arthroplasty. No acute fracture is seen. ACT 112: Negative or not required by law. Electronically signed by: Gilberto Ndiaye M.D. 03/18/2024 3:49 PM
[2024-03-18] MEDS: SODIUM CHLORIDE 0.9% 1,000 ML IV SCH (16:06)
[2024-03-18] MEDS: ONDANSETRON INJ 2 MG/ML 2 ML VIAL IV PRN (16:12)
[2024-03-18] MEDS: KETOROLAC TROMETHAMINE 15 MG/ML VIAL IV SCH (17:17)
[2024-03-18] MEDS: METOCLOPRAMIDE HCL INJ 5 MG/ML 2 ML VIAL IV PRN (20:07)
[2024-03-18] MEDS: DOCUSATE SODIUM 100 MG CAP PO SCH (20:11)
[2024-03-18] MEDS: ASPIRIN 81 MG ECTAB PO SCH (20:11)
[2024-03-18] MEDS: SENNA 8.6 MG TAB PO SCH (20:11)
[2024-03-18] MEDS: LORazepam 0.5 MG TAB PO PRN (20:56)
--- NOTE | 2024-03-19 06:45 | Orthopedic Progress Note ---
Date of Service March 19, 2024 Assessment & Plan (1) Status post revision of total hip replacement: Overall she is doing well she is not having much pain in the left hip. She will be seen by physical therapy today for ambulation and range of motion exercises. The nursing staff will reinforce her dressing. She is on aspirin for DVT prophylaxis. She can be discharged home later today. She will follow-up with orthopedics in 2 weeks. Dory Salazar was seen and examined at bedside this morning. Overall she is doing very well. She is not having much pain in the right hip. She has been up and ambulating. She has no complaints.. Review of Systems All systems reviewed & are unremarkable except as noted in HPI & below. Physical Exam On physical examination of the right hip, the dressing has a little bit of drainage. That will be reinforced. The leg lengths are equal. She has active dorsiflexion plantarflexion of her right ankle.. Results & Data Results & Data Laboratory Results . PG Care Time/CCT Total # of Minutes Spent Total Time Spent with Patient: Total time spent is greater than 50% in coordination of care (as documented) at patient's floor/unit and/or counseling patient: Coding Level of Care Code 68861 Post Operative Follow-Up Diagnoses Status post revision of total hip replacement Z96.649
--- NOTE | 2024-03-19 06:46 | Discharge Summary ---
Date of Service March 19, 2024 Principal Diagnosis Same as "Discharge Diagnosis" noted below under Discharge Instructions. Discharge Exam On physical examination of the right hip, the dressing has a little bit of drainage. That will be reinforced. The leg lengths are equal. She has active dorsiflexion plantarflexion of her right ankle.. Discharge Data Procedures Performed Operation Date: 03/18/24 12:00 Actual Procedures p Partial Revision Right Anterior Total Hip Arthroplasty(Right) - Elpidio Pryor DO Ordered Studies 03/18/24 12:00 FL hip RT 1V Routine Hospital Course (1) Status post revision of total hip replacement: On March 18, 2024 Marie arrived at [facility] and underwent a right revision hip replacement without complication. She had a spinal anesthetic. Postoperatively she was started on aspirin for DVT prophylaxis and transferred to the general orthopedic floors. Her hospital course was uneventful. On postop day #1, her vital signs were stable and her pain was well-controlled. She was able to participate well with physical therapy doing ambulation and range of motion exercises. She was then discharged home. She will follow-up with orthopedics in 2 weeks. PG Care Time/CCT Total # of Minutes Spent Total Time Spent with Patient: Total time spent is greater than 50% in coordination of care (as documented) at patient's floor/unit and/or counseling patient: Discharge Plan Discharge Items Patient Disposition: Home - Self-Care Reason For Visit: Instability Right Total Hip Discharge Diagnosis: Revision right hip replacement Activity: As commented below Non-emergency contact: Surgeon Call non-emergency contact if: your wound has increased redness and your wound has increased drainage Follow-up/Referrals: Domingo Tellez DO [Primary Care Provider] - Diet: Regular Addtl Attending Provider Instructions: Activity and Therapy Recommendations: * If you are using [facility] then therapy will be provided at your home until they feel you have accomplished all of your goals. * If you are using [facility] then Physical Therapy will be provided until they feel you are ready to start Outpatient Physical Therapy. * If you are not using home therapy then Outpatient Physical Therapy should start about 3-5 days from your day of surgery. Therapy will last about 6-10 weeks * You were shown a series of exercises in the hospital. Do these exercises three times each day including the exercises you were shown in physical therapy. * Get up and walk several times each day.~ For the first four weeks, try not to stand or walk for more than one hour at a time. If you do stand or walk for more than one hour, you will not hurt anything, but your leg will likely swell.~~ * As you feel comfortable, you may change from the walker or crutches to a cane and~then to independent walking. Medications: * Narcotic You will likely be sent home from the hospital with a prescription for the narcotic pain medication that worked best throughout your stay. * Cefadroxil -take the antibiotic twice a day for 10 days to help prevent infection. * Aspirin Most patients will be required to take Aspirin 81mg twice a day for 6 weeks after surgery. This is obtained [id number] and a prescription is not necessary. * Other medications may be prescribed for specific circumstances. If you have any questions, please call the office at . * Resume previous home medications unless otherwise instructed TEDs/Elastic Stockings: The white elastic stockings help limit swelling and prevent blood clots from forming in your legs. The more you wear them, the more they work. Wear them for six weeks. Dressing Care: Leave the Silverlon dressing in place for 7 days. After 7 days you may remove the dressing. If the incision is not draining then you may leave the adelso open to air. If there is a little bit of drainage or if the adelso are getting stuck on your clothing then cover the incision with a dry dressing. The adelso will be removed at your 2 week follow-up appointment. Showering: You may shower with the Silverlon dressing in place. Do not let the shower sp ray hit the dressing directly. Pat the Silverlon dressing dry. If the dressing becomes wet underneath, then simply remove the dressing. Keep the incision dry until you are 7 days out from the day of surgery. After 7 days you may remove the Silverlon dressing and shower with the adelso exposed. Let soapy water run over the adelso and pat them dry. Do not scrub or soak the incision. Things To Watch For: * Drainage from the incision site that occurs more than one week after your surgery. * Increased redness at the incision site. * Fever above 102 degrees Fahrenheit. * Unusual chest pain or shortness of breath. * Call [facility] at with any of the above problems Follow-Up Visit: Follow-up with Dr. Pyror's PA (Elpidio Vallecillo) 2-3 weeks after your day of surgery. He will remove your adelso and answer any questions. If you have any additional questions or concerns, Dr Pryor is usually in the office at the same time and will be available An appointment was probably scheduled when you signed-up for surgery in the office. If you have any questions call Office Instructions: More detailed instructions as well as Frequently Asked Questions were provided in a folder by our office when you signed-up for surgery. Please review these instructions when you get home. If you have any further questions or concerns, please feel free to call the office at [phone] Pending Studies at Discharge: No Stand-Alone Forms: My [facility] Medications and DC Order Prescriptions: New cefadroxil 500 mg capsule 500 mg PO BID 10 Days Qty: 20 0RF aspirin 81 mg Tablet,Delayed Release (Dr/Ec) 81 mg PO BID 42 Days Qty: 0 0RF Continued lorazepam 0.5 mg tablet 0.5 mg PO BID PRN (Reason: Anxiety) Qty: 60 0RF multivitamin [Daily Multi-Vitamin] tablet 7 tab PO QAM amlodipine 10 mg tablet 10 mg PO QAM Gianfranco-Plex 1 tab PO QPM Patient Comments: w/lunch polyethylene glycol 3350 [Miralax] 17 gram/dose Powder 17 g PO DAILY omega-3 fatty acids Capsule 2 cap PO QAM oxycodone 5 mg tablet 5 mg PO Q6H PRN (Reason: pain) Discharge Orders: Discharge Order (Routine); Ordered 03/19/24 Ordered By: Elpidio Pryor Admission Data Admit Date/Time: 03/18/24 13:18 Attending Provider: Elpidio Pryor Admit Provider: Elpidio Pryor Primary Care Provider: Domingo Tellez
[2024-03-19] MEDS: MULTIVITAMIN TAB PO SCH (08:14)
[2024-03-19] MEDS: amLODIPine BESYLATE 5 MG TAB PO SCH (08:14)
[2024-03-19] MEDS: dexAMETHasone 4 MG TAB PO SCH (08:14)
== END 2024-03-19 17:05 | disposition home or self-care (01) | DRG 468 ==
LOC: ASU 09:53 → 3E 09:53 → INTOOBSV 13:20 → UNDODISOB 03-19 17:05